=== PATIENT | female | born 1940 | race Caucasian/White ===

== ENCOUNTER 2016-10-31 06:28 | Inpatient (IN) ==
[2016-10-31] MEDS ORDERED: 0.9 % Sodium Chloride 1,000 ML IVC SCH (06:45)
[2016-10-31] MEDS ORDERED: Verapamil 5 MG/2 ML VIAL ONE (06:58)
[2016-10-31] MEDS ORDERED: Heparin 1,000 UNITS/500 mL NS 500 ML ONE (06:58)
[2016-10-31] MEDS ORDERED: Nitroglycerin 1,000 MCG/10 ML VIAL IV ONE (06:58)
[2016-10-31] MEDS ORDERED: 0.9 % Sodium Chloride 1,000 ML ONE (06:58)
[2016-10-31] MEDS ORDERED: *HR* Heparin 10,000 UNIT/10 ML VIAL ONE (06:58)
[2016-10-31] MEDS ORDERED: *HR* FentaNYL (PF) 100 MCG/2 ML VIAL ONE (07:26)
[2016-10-31] MEDS ORDERED: *HR* Midazolam HCl 2 MG/2 ML VIAL ONE (07:27)
--- NOTE | 2016-10-31 07:32 | History & Physical Report ---
Date of Encounter: 10/31/16 Time of Encounter: 07:30 24 Hour HP Update - Instructions Instructions: If the History and Physical is less than 30 days old and was completed prior to A.M. admission and or procedure and has NOT been updated on calendar day of procedure please complete this update prior to performing procedure. - Update Patient reports changes in Medical Condition: No Changes in examination, assessment, or condition: No Changes in Medication: No Preop tests/diagnostics Reviewed: Yes Surgery Remains Indicated: Yes Consent for Planned Operative Procedure(s) Verified: Yes
--- NOTE | 2016-10-31 07:32 | Pre-Sedation Evaluation ---
Pre-sedation evaluation - Pre-sedation checklist Date of procedure: 10/31/16 Procedure: [facility] Recent Vitals: Last Vital Signs Temp 97.6 F 10/31/16 06:46 Pulse 85 10/31/16 06:46 Resp 18 10/31/16 06:46 BP 132/64 10/31/16 06:46 Pulse Ox 93 10/31/16 06:46 H&P (including ROS) documented in medical record: Yes Previous reaction to sedatives/anesthetics: No Dietary Status: NPO after Midnight Dentition: No loose teeth or bridges ASA Classification *see protocol: CLASS II-Mild systemic disease Plan of Care: Pt appropriate candidate for procedure/moderate/conscious sedation , Risks/benefits of procedure/sedation discussed w/ patient/family
--- NOTE | 2016-10-31 08:42 | Invasive Diagnostic Lab Proc ---
Name: Dolores Lundy Date of Study: 10/31/2016 Date: 1940 Ht: 62.0in Medical Record#: [id number] Age: 76 Wt: 133.00lb Gender: Female BSA: 1.61 Order #: [id number] BMI: 24.33 Physicians Procedure Physician: Damon Clay MD, FACC Referring MD: Referring MD: Antonieta Daly, DANNY Staff [facility] 07:05 AM Amanda Isidro RN Pre-Op Nurse 07:05 AM Erika Nagy RN Monitor 07:36 AM Alicja Ureña RN Glue Bone Crusher 07:36 AM Eli Baig RT (R) Scrub 07:37 AM Indications Indication Abnormal Test - Stress Procedures Performed Procedure L HRT ARTERY/VENTRICLE ANGIO Pre-Procedure Checklist Informed consent is complete signed and on chart. H&P is on chart. ID band is on and ID verified with patient. Patient NPO for procedure The procedure was described for the patient and questions were answered. Blood Pressure: 132/64 ECG is on chart. Rhythm: NSR Plan of Care Patient will tolerate the procedure without complications. Adequate level of comfort will be maintained. Hemodynamics will remain stable Patient will recover from procedure without complications. Respiratory function will be maintained. Cardiac rhythm will remain stable. Patient temperature will be maintained. Patient and/or family have verbalized understanding of the procedure. Patient Education Intravenous Access Time IV Size Location DC'd Fluid/Drip Rate Units RN 07:04 AM Started with 20g 1 1/4" Lt Antecubital 0.9NaCl 50 ml/hr Amanda Isidro RN Allergies No Known Allergies Vital Signs Time BP (mmHg) HR (bpm) O2 Sat. RR (bpm) LOC 07:04 AM 132 / 64 85 93 % 18 5 = Fully awake and oriented or at pre-proc level 07:38 AM / % 5 = Fully awake and oriented or at pre-proc level 07:38 AM / % 4 = Oriented but drowsy 07:33 AM 171 / 80 89 96 % 19 07:35 AM 180 / 77 91 96 % 22 07:38 AM 147 / 68 87 89 % 13 07:41 AM 149 / 75 83 90 % 15 07:44 AM 156 / 76 82 92 % 14 07:47 AM 154 / 73 81 92 % 20 07:50 AM 149 / 68 83 92 % 18 07:53 AM 135 / 67 82 90 % 18 07:57 AM 152 / 75 83 91 % 15 07:59 AM 148 / 73 84 91 % 20 08:02 AM 156 / 69 % 08:10 AM 140 / 70 78 94 % 18 5 = Fully awake and oriented or at pre-proc level 08:25 AM 141 / 61 79 94 % 16 5 = Fully awake and oriented or at pre-proc level Procedural Medications Time Medication Dose Units Method Given By 07:38 AM Oxygen 2 L/min nasal cannula Alicja Ureña RN 07:38 AM Versed 2 mg Intravenous Alicja Ureña RN 07:38 AM Fentanyl 25 mcg Intravenous Alicja Ureña RN 07:40 AM Lidocaine 2% 0.5 ml Subcutaneous Damon Clay MD, FAC 07:42 AM Lidocaine 2% 15 ml Subcutaneous Damon Clay MD, FAC 07:51 AM Nitroglycerin 100 mcg Intracoronary Damon Clay MD ASA Classification: CLASS II- Mild systemic disease (i.e. well-controlled diabetes, hypertension, asthma, cigarette smoking) Deni Score Preprocedure Postprocedure Activity 2- Moves 4 extremities sustained head lift Activity 2- Moves 4 extremities sustained head lift Circulation 2- SBP +/= 20 points of pre-anesthetic level Circulation 2- SBP +/= 20 points of pre-anesthetic level Consciousness 2- Awake and alert oriented x 3 Consciousness 2- Awake and alert oriented x 3 O2 Saturation 2- Able to maintain O2 satruation of 92% on room air O2 Saturation 2- Able to maintain O2 satruation of 92% on room air Respiratory 2- Able to deep breathe and cough well Respiratory 2- Able to deep breathe and cough well Total Score 10 Total Score 10 Contrast Agent: Isovue Diagnostic Contrast: 54 ml Total Contrast: 54 ml Fluoro Dose: 118 mGy Procedure Log Time Note Enter By 07:25 AM Pt arrived to rags laborer 1 at 07:25 [email or web address] 07:26 AM Physician arrived 07:26 [email or web address] 07:26 AM [email or web address] 07[facility]27 AM Sign in performed according to hospital policy. [email or web address] 07:27 AM Procedure [facility] 07[facility]27 [email or web address] 07[facility] AM CathStat 07:31 AM Vitals capture started with the following parameters, Patient=Adult, Interval=3 min, Initial Jsexvsbq=702 mmHg, Deflation Rate=5 mmHg, Cuff placed on Right Arm 07:33 AM HR=89 bpm, BASD=336/80 mmhg, SpO2=96.0 %, Resp=19 B/min, Comment=NSR 07:34 AM Recorded ECG: HR=91 Condition=Condition 1 07:35 AM HR=91 bpm, SZNQ=847/77 mmhg, SpO2=96.0 %, Resp=22 B/min, Comment=NSR 07:35 AM ASA Class CLASS II- Mild systemic disease (i.e. well-controlled diabetes, hypertension, asthma, cigarette smoking) [email or web address] 07:36 AM Erika Nagy RN Position: Monitor Time in: 07:36 [email or web address] 07:37 AM Alicja Ureña RN Position: Glue Bone Crusher Time in: 07:36 [email or web address] 07:37 AM Eli Baig RT (R) Position: Scrub Time in: 07:37 [email or web address] 07:37 AM Patient charges- Angio tray pack, Navilyst 3mm J, Pulse Oximetry and ACIST tubing and transducer [email or web address] 07:37 AM IV Supplies used: J loop Angio Cath. [email or web address] 07:37 AM Case Delayed No [email or web address] 07:37 AM Hair removed from procedure site in holding area using clippers. Left wrist prepped with Chloraprep by Eli Baig RT (R), safety strap applied then patient was draped. Skin intact. [email or web address] 07:37 AM Hair removed from procedure site in holding area using clippers. Bilateral groin prepped with Chloraprep by Eli Baig RT (R), safety strap applied then patient was draped. Skin intact. [email or web address] 07:38 AM Time: 07:38 Oxygen on at 2 L/min per nasal cannula by Alicja Ureña RN [email or web address] 07:38 AM Time: 07:38 Versed 2 mg Intravenous Given by Alicja Ureña RN [email or web address] 07:38 AM Time: 07:38 Fentanyl 25 mcg Intravenous Given by Alicja Ureña RN [email or web address] 07:38 AM HR=87 bpm, XVIA=707/68 mmhg, SpO2=89.0 %, Resp=13 B/min, Comment=NSR 07:38 AM Time: 07:38 Patient comfortable and pain free: Yes [email or web address] 07:38 AM Time: 07:38LOC: 5 = Fully awake and oriented or at pre-proc level [email or web address] 07:38 AM Clinical Presentation: Stable angina [email or web address] 07:40 AM Time out performed according to hospital policy [email or web address] 07:40 AM Time: 07:40 0.5 ml Lidocaine 2% to left radial Subcutaneous Given by Damon Clay MD, [facility] [email or web address] 07:41 AM HR=83 bpm, CJZT=477/75 mmhg, SpO2=90.0 %, Resp=15 B/min, Comment=NSR 07:42 AM Unsuccessful access attempt # 1 into the left Radial artery. Manual pressure applied to achieve hemostasis.. [email or web address] 07:44 AM Time: 07:42 15 ml Lidocaine 2% to right groin Subcutaneous [facility] by [facility], [email or web address] 07[facility] AM Access obtained by percutaneous puncture. 6Fr 10cm Terumo Glidesheath sheath placed in right Femoral artery. [id number] [email or web address] 07:44 AM HR=82 bpm, NXFA=454/76 mmhg, SpO2=92.0 %, Resp=14 B/min, Comment=NSR 07:45 AM Pressure channel 2 zeroed. 07:47 AM 5Fr FR 4 catheter inserted over the wire [facility] [email or web address] 07:47 AM 0.035 145cm Navilyst 3mmJ wire [id number] [email or web address] 07:47 AM HR=81 bpm, PXYQ=873/73 mmhg, SpO2=92.0 %, Resp=20 B/min, Comment=NSR 07:48 AM Recorded Pressure: Ao, HR=78, Condition=Condition 1 (Aorta) Ao 122/74/97 07:48 AM Lesion found in Proximal RCA. Pre Stenosis: 40 [email or web address] 07:48 AM [email or web address] 07[facility]49 AM 5Fr FL 4 catheter inserted over the wire [facility] [email or web address] 07:49 AM LCA angiography performed in multiple views. [email or web address] 07:49 AM Recorded Pressure: Ao, HR=82, Condition=Condition 1 (Aorta) Ao 107/44/72 07:50 AM HR=83 bpm, ZZIT=709/68 mmhg, SpO2=92.0 %, Resp=18 B/min, Comment=NSR 07:51 AM Time: 07:51 Nitroglycerin 100 mcg Intracoronary Given by Damon Clay MD [email or web address] 07:51 AM Catheter removed [email or web address] 07:52 AM 5Fr Pigtail catheter inserted over the wire [facility] [email or web address] 07:52 AM Lesion found in LMCA. Pre Stenosis: 80 [email or web address] 07:53 AM Lesion found in Proximal LAD. Pre Stenosis: 99 [email or web address] 07:53 AM Catheter removed [email or web address] 07:53 AM Recorded Pressure: LV, HR=84, Condition=Condition 1 (Left Ventricle) LV 146/-6/9 07:53 AM HR=82 bpm, RHJD=911/67 mmhg, SpO2=90.0 %, Resp=18 B/min 07:53 AM Time: 07:38 Patient comfortable and pain free: Yes [email or web address] 07:53 AM Time: 07:38LOC: 4 = Oriented but drowsy [email or web address] 07:54 AM Recorded Pressure: LV, Ao, HR=84, Condition=Condition 1 (Left Ventricle) LV 121/-1/33, (Aorta) Ao 125/44/74 07:54 AM Bolus angiogram of right Femoral complete: 4 ml/sec for a total of 7 mls [email or web address] 07:56 AM Coronary Dominance: right [email or web address] 07:57 AM HR=83 bpm, DPEN=827/75 mmhg, SpO2=91.0 %, Resp=15 B/min 07:57 AM Right Coronary, Right Posterior Descending Arteries with Right Posterolateral and Acute Marginal branches with 40 % stenosis. [email or web address] 07:57 AM Left Main Coronary Artery with 80% stenosis [email or web address] 07:57 AM Proximal Left Anterior Descending Coronary Artery with 99% stenosis. [email or web address] 07:59 AM Procedure completed at 07:59 [email or web address] 07:59 AM HR=84 bpm, MXOJ=254/73 mmhg, SpO2=91 %, Resp=20 B/min 07:59 AM Sign out completed: Radiation Dose 117.64 mGy Fluoro Time: 2.5 Isovue 370 - 200ml contrast 54 ml given by Damon Clay MD, FACC. Complications: NoneCardiac Rehab Consult needed: NoConfirmed administered medications: Yes [email or web address] 07:59 AM Isovue 370 - 200ml,1 Bottle(s) used. [email or web address] 08:00 AM Arterial sheath pulled, Mynx closure device used and was Successful [id number] S/N. [email or web address] 08:00 AM Post ECG NSR [email or web address] 08:00 AM Post Blood Pressure 148/73 [email or web address] 08:00 AM 08:00 Post Pulses Bilateral DP & PT 2+ [email or web address] 08:00 AM 08:00 Post Pulses Lt Radial 2+ [email or web address] 08:01 AM Information taught Cardiac Cath and Mynx [email or web address] 08:01 AM Education needs Procedure, Plan of Care, and Safe & Effective Use of Medications [email or web address] 08:01 AM Learning barriers :None [email or web address] 08:01 AM Education Methods Verbal [email or web address] 08:01 AM Education evaluation Able to repeat information [email or web address] 08:01 AM Site status No bleeding/hematoma - Rt Groin as reported by Eli Baig RT (R) at 08:01 [email or web address] 08:01 AM Opsite applied [email or web address] 08:02 AM WTCC=117/69 mmhg 08:03 AM Report given to Ruth Ann ESCOBEDO Pt taken to Holding room Room #1. 08:02 [email or web address] 08:03 AM Plavix, Effient or Brilinta given No [email or web address] 08:03 AM Delay to floor Bed availability [email or web address] 08:03 AM Patient out of room: 08:03 [email or web address] 08:03 AM Family placed in consult room. [email or web address] 08:03 AM Complications: None [email or web address] 08:03 AM Fluoro Time: 2.5 [email or web address] 08:03 AM Isovue 370 - 200ml contrast 54 ml given by Damon Clay MD, FACC. [email or web address] 08:04 AM Radiation Dose 117.64 mGy [email or web address] 08:04 AM Vitals capture stopped. 08:[address] Soler called back and updated on patient consult [email or web address] 08:08 AM Lesion found in Ramus. Pre Stenosis: 95 [email or web address] 08:08 AM Ramus with 95% stenosis. [email or web address] 08:11 AM Patient arrive to Holding area 1 mprater 08:20 AM report given to Suze gonzalez 2N mprater 08:26 AM Patient transferred to 2N mprater Complications Complication None Hemodynamics Pressures Site Systolic/A Wave Diastolic/V Wave Mean AO 122 74 97 AO 107 44 72 LV 146 -6 9 LV 121 -1 33 AO 125 44 74 Post Procedure Information Blood Pressure: 148/73 mmHg Rhythm: NSR Post procedural instructions were given Surgery consult for CABG Closure Device Time Device Success/Fail 10/31/2016 8:04:00 AM MynxGrip Successful Site Checks Time Location Status Staff Sheath In? Note 08:01 AM Rt Groin No bleeding/hematoma Eli Baig RT (R) 08:10 AM Rt Groin No bleeding/ No Hematoma Kaur Jj RN 08:25 AM Rt Groin No bleeding/ No Hematoma Kaur Jj RN Pulses Time Site Pre-Procedure Post-Procedure Note 10/31/2016 7:04:00 AM Bilateral DP & PT 2+ 10/31/2016 7:04:00 AM Bilateral radial 2+ 10/31/2016 7:34:00 AM Lt Radial Normal plethysmography's Test 8:00:00 AM Bilateral DP & PT 2+ 8:00:00 AM Lt Radial 2+ 10/31/2016 8:25:00 AM Bilateral DP & PT 2+ Updated by Kaur Jj RN on 10/31/2016 8:36:22 AM Kaur Jj RN electronically signed on 10/31/2016 8:38:10 AM with status of Final
[2016-10-31] MEDS ORDERED: *HR* Heparin 10,000 UNIT/10 ML VIAL IV ONE (08:50)
[2016-10-31] MEDS ORDERED: Sodium Bicarbonate 50 MEQ/50 ML VIAL IVC ONE (08:50)
[2016-10-31] MEDS ORDERED: Albumin Human 25% 25 GM/100 ML IV.SOLN IV ONE (08:50)
[2016-10-31] MEDS ORDERED: Lidocaine 2% Syringe 100 MG/5 ML IV ONE (08:50)
[2016-10-31] MEDS ORDERED: *HR* Magnesium Sulfate 2 GM/50 ML PIGGYBACK IVPB ONE (08:50)
[2016-10-31] MEDS ORDERED: Mannitol 25% vial 12.5 GM/50 ML VIAL IVP ONE (08:50)
[2016-10-31] MEDS ORDERED: *HR* Phenylephrine 10 MG/ML VIAL IVC ONE (08:50)
[2016-10-31] MEDS ORDERED: Nitroglycerin 0.4 MG TAB.SUBL SL PRN (09:01)
[2016-10-31] MEDS ORDERED: *HR* Morphine 2 MG/ML SYRINGE IVP PRN (09:01)
[2016-10-31] MEDS ORDERED: *HR* Heparin 5,000 UNIT/ML VIAL IVP PRN ×2 (09:03)
[2016-10-31] MEDS ORDERED: *HR* Heparin 5,000 UNIT/ML VIAL IVP ONE (09:03)
--- NOTE | 2016-10-31 09:20 | Invasive Diagnostic Lab ---
Name: Dolores Lundy Date of Study: 10/31/2016 Date: 1940 Ht: 157.5 cm /62.0 in Medical Record#: [id number] Age: 76 Wt: 60.3 kg / 133.00 lb Account/Order#: [id number] Gender: Female BSA: 1.61 Order #: [id number] Fluoro Dose: 118 mGy BMI: 24.33 Procedure Physician: Damon Clay MD, FACC Referring MD: Referring MD: Antonieta Daly CNP Procedures Performed: LEFT HEART CATH Right iliofemoral angiography Indications: Abnormal Test - Stress, Angina Impressions: There is critical three vessel coronary artery disease involving ostia of LAD, ramus, LCx with diffuse severe left main disease The left ventricle has normal contractility EF 65% Recommendations: Optimal medical therapy of patient's disease. Aggressive risk factor modification. Suggest patient have Urgent coronary artery bypass surgery. History/Risk Factors: ABNORMAL STRESS TEST CAD Hypertension Dyslipidemia Family History of CAD Procedure Access obtained in the right Femoral artery by percutaneous puncture Complications: None Contrast: Isovue 54ml Closure Device: MynxGrip Hemodynamics: Pressures Site Systolic/ A Wave Diastolic/ V Wave End Diastolic/ Mean HR AO 122 74 97 78 AO 107 44 72 82 LV 146 -6 9 84 LV 121 -1 33 99 AO 125 44 74 70 LV Ventriculography Ejection Method: LV Gram Ejection Fraction: 65% Wall Motion: ORTIZ Anterobasal Normal Anterolateral Normal Apical: Normal Inferoapical Normal Inferobasal Normal Coronary Dominance: right Lesion Findings/Interventions * Left Main Coronary Artery There is diffuse 60-80% stenosis in the LMCA. * Left Anterior Descending There is a 99% stenosis in the Proximal LAD. * Circumflex There is an ostial 95% stenosis in the circumflex * Ramus There is a 99% stenosis in the ostial Ramus. * Right Coronary Artery There is a 40% stenosis in the Proximal RCA. Right iliofemoral angiography shows appropriate sheath placement for mynx closure and no significant stenosis in the distal EI/FINANCE CLERK/proximal SFA Updated by RT Emily(R) on 10/31/2016 8:10:26 AM Damon Clay MD, FACC electronically signed on 10/31/2016 9:13:55 AM with status of Final
[2016-10-31 09:31] LABS: Hematocrit 40.1 % (35.3-44.9); Hemoglobin 13.3 g/dL (11.5-15.4); Mean Corpuscular HGB Conc 33.2 g/dL (31.6-35.5); Mean Corpuscular Volume 93.5 fL (83.0-100.0); Mean Platelet Volume 10.1 fL (9.4-12.4); Platelet Count 158 K/mcL (140-400); Prothrombin Time 11.2 Seconds (9.4-12.1); Red Blood Count 4.29 M/mcL (3.82-4.97); Red Cell Distribution Width 12.6 % (11.5-14.5)
[2016-10-31 09:33] LABS: Activated Partial Thrombo Time 29.3 Seconds (26.0-36.0)
--- NOTE | 2016-10-31 09:47 | Event Note ---
Date of Encounter: 10/31/16 Time of Encounter: 09:45 - Cardiology Event Note Critical multivessel CAD involving ostial of LAD/LCx/ramus with diffuse severe disease in the left main and normal EF. Recommend urgent CABG. Heparin drip will be started and CT surgery consulted.
[2016-10-31] MEDS: Heparin 25,000 UNIT/500 ML D5W 25,000 UNIT/500 ML MLS IVC SCH (10:00)
--- NOTE | 2016-10-31 10:37 | Cardiothoracic Consult Note ---
Date of Encounter: 10/31/16 Time of Encounter: 10:33 Assessment and Plan (1) Coronary artery disease Current Visit: Yes Status: Acute The assessment and plan as outlined above was discussed with the patient and/or family members who expressed understanding and agreement. All questions were answered. The patient is a candidate for coronary artery bypass grafting. She is pain- free on a heparin drip. I will check a carotid duplex. The patient has a history of dizziness and headaches. The patient also states that she has a cold and wishes to wait until Monday if possible. Operative consent was obtained. Risks of surgery include , infection, stroke, bleeding, myocardial infarction, clots around the heart, renal or respiratory failure, acute or chronic graft closure, phrenic nerve injury and sternal dehiscence. The procedure, its risks, benefits and alternatives were explained and she does wish to proceed. She and her family at this point have no questions. We will tentatively schedule her for Monday. Qualifiers: Coronary Disease-Associated Artery/Lesion type: [place] artery [place] vs. transplanted heart: [place] heart Associated angina: with stable angina Qualified Code(s): I25.118 - Atherosclerotic heart disease of [place] coronary artery with other forms of angina pectoris (2) Angina pectoris Current Visit: Yes Status: Acute The assessment and plan as outlined above was discussed with the patient and/or family members who expressed understanding and agreement. All questions were answered. - History of Present Illness Consult date: 10/31/16 History of present illness: Ms. Lundy is a 76 year old female History of present illness. The patient is a 76-year-old female who has a several month history of chest pain. This occurs at rest and with exertion. No known history of myocardial infarction. Presently she is pain free. Echocardiogram revealed good ventricular function with no significant valvular dysfunction. Cardiac catheterization revealed good ventricular function. Her right coronary artery has less than a 40% blocked. She has an 80% left main lesion and a block in her proximal LAD and intermediate branches. These looked to be graftable vessels. Past medical history is positive for hypertension and hypercholesterolemia, both of which are treated. No history of diabetes. She does take a nerve pill. Medications at home include calcium, vitamin D and aspirin. Surgery she had removal of both ovaries. Social history. She lives in [place] with her . Does not smoke and does not drink. Family history is positive for coronary artery disease. Review of systems is notable for dizziness and headaches. No history of stroke or TIA. No history of saphenous vein varicosities or strippings. The patient does take a nerve pill for anxiety. Past Med Surg Social Fam HX - Past Medical History Medical history: coronary artery disease, hyperlipidemia, hypertension Psychiatric history: anxiety - Social History Smoking Status: Never smoker Smokeless Tobacco Status: No Alcohol use: none Drug use: none Medications and Allergies Amlodipine Besylate 2.5 mg PO DAILY 10/31/16 [History] Atenolol [Tenormin] 25 mg PO DAILY 10/31/16 [History] Calcium Carbonate [Calcium] 500 mg PO DAILY 10/31/16 [History] Cholecalciferol (Vitamin D3) [Vitamin D] 2,000 unit PO DAILY 10/31/16 [History] Pravastatin Sodium [Pravachol] 40 mg PO DAILY 10/31/16 [History] clonazePAM [Clonazepam] 0.25 mg PO DAILY 10/31/16 [History] Allergies No Known Allergies Allergy (Unverified 10/10/16 08:48) All Systems Review: A 10-system review of systems was performed and is negative for pertinent findings except as documented above in the HPI. Physical Examination Vital Signs, Last 4 Hours Temp Pulse Resp BP Pulse Ox 10/31/16 08:34 97.6 F 89 16 134/72 95 10/31/16 08:30 97.6 F 89 16 134/72 95 10/31/16 06:46 97.6 F 85 18 132/64 93 The patient has small bilateral cataracts. She is edentulous. Neck is supple. Trachea in the midline. No thyromegaly or carotid bruits. Lungs are clear to percussion and auscultation. Heart is in a normal sinus rhythm. Abdomen is benign. She is status post removal of her ovaries. No tenderness, rebound or guarding. Extremities without edema. 1+ pulses. No saphenous vein varicosities or strippings. Cranial nerves, motor and sensory intact. Results 10/31/16 09:17 Lab Results, Last 24 hours 10/31/16 10/31/16 09:17 09:17 WBC 5.5 Hgb 13.3 Hct 40.1 Plt Count 158 INR 1.0 APTT 29.3 Consult Discharge Plan - Plan Referrals: Antonieta Daly CNP [Primary Care Provider] -
[2016-10-31 11:26] LABS: Hemoglobin A1C 5.6 %
[2016-10-31 11:28] LABS: INR 1.1; Prothrombin Time 11.4 Seconds (9.4-12.1)
[2016-10-31 11:31] LABS: Activated Partial Thrombo Time 34.5 Seconds (26.0-36.0)
[2016-10-31 11:33] LABS: BUN/Creatinine Ratio 18 (6-26); Blood Urea Nitrogen 14 mg/dL (7-20); Calcium 9.4 mg/dL (8.6-10.8); Carbon Dioxide 28 mEq/L (19-29); Chloride 106 mEq/L (98-109); Chol/HDL Ratio 3.1 (0-4.9); Cholesterol 160 mg/dL (< 200); Glucose 95 mg/dL (70-99); HDL Cholesterol 51 mg/dL (40-59); LDL Cholesterol,Calculated 94 mg/dL (0-99); Osmolality,Calculated 290 (280-300); Sodium 140 mEq/L (136-145); Triglycerides 75 mg/dL (< 150); eGFR For African Americans > 60 (> 60); eGFR For Non-African Americans > 60 (> 60)
[2016-10-31 13:56] LABS: Bilirubin,Urine Negative (Negative); Blood,Urine Negative (Negative); Clarity,Urine Clear (Clear); Color,Urine Yellow (Yellow); Glucose,Urine (UA) Normal (Normal); Ketones,Urine Negative (Negative); Leukocyte Esterase,Urine Negative (Negative); Nitrite,Urine Negative (Negative); Protein,Urine Negative (Neg-Trace); Specific Gravity,Urine 1.026 (1.010-1.025); Urobilinogen,Urine Normal (Normal)
--- NOTE | 2016-10-31 14:29 | Anesthesia Evaluation PreOp ---
Date of Encounter: 11/02/16 Time of Encounter: 07:33 - Past History Planned Operation: CABG Cardiac History: Angina, HTN, Hyperlipidemia Pulmonary History: Denies Any Significant HX COLLIERY CLERK History: Denies Any Significant HX Other Medical History: Denies Any Significant HX Anesthesia History: No Prior Anesthetic Complications : No Alcohol Use: none Drug use: none Medications and Allergies Amlodipine Besylate 2.5 mg PO DAILY 10/31/16 [History] Aspirin [Lo-Dose Aspirin EC] 81 mg PO DAILY 10/31/16 [History] Atenolol [Tenormin] 12.5 mg PO HS 10/31/16 [History] Calcium Carbonate [Calcium] 500 mg PO DAILY 10/31/16 [History] Cholecalciferol (Vitamin D3) [Vitamin D] 2,000 unit PO DAILY 10/31/16 [History] Pravastatin Sodium [Pravachol] 40 mg PO DAILY 10/31/16 [History] Allergies No Known Allergies Allergy (Verified 10/31/16 13:36) - Meds/Allergy Pre-op Review Medications Reviewed: Yes Allergies Reviewed: Yes Beta Blockers on Current Med List: Yes Anesthesia Results - Labs 11/01/16 03:43 11/01/16 03:43 - Imaging Additional studies: Cath shows 3 vessel disease with EF 65%, no valvular disease. Anesthesia Exam Selected Entries 11/02/16 04:51 Temperature 98.1 F Respiratory Rate 18 Blood Pressure 150/73 O2 Sat by Pulse Oximetry 94 Weight: 61kg NPO (# of Hours): 8 Pain Scale: 0 Pain Scale Used: Numeric (1 - 10) - HEENT Pupil (Motor): EOMI Mallampati: I Teeth: Edentulous Oral Opening: Greater than 3 - COLLIERY CLERK LOC: Oriented COLLIERY CLERK Motor: Normal RUE, Normal LUE, Normal RLE, Normal LLE, Normal Face COLLIERY CLERK Sensory: Normal: RUE, LUE, RLE, LLE, Face - Cardiac Rhythm: Regular Murmur: None - Pulmonary Breath Sounds: bilateral Clear Respiratory Effort: Symmetrical Anesthesia Assess/Plan ASA Score: 4 Modified Lorenza Scale for Level of Consciousness: Cooperative, oriented, and tranquil Anesthetic Plan: General Monitoring Plan: Standard Monitors, A-Line, PAC, [place] Recovery Plan: ICU (Discussed risks of GA, lines, [place], and blood products. Questions answered and agrees to proceed)
--- NOTE | 2016-10-31 16:15 | Electrocardiograph Report ---
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
[2016-10-31 16:41] LABS: Activated Partial Thrombo Time 131.6 Seconds (26.0-36.0)
[2016-10-31 16:55] LABS: Heparin anti-factor XA UFH 0.67 IU/mL (0.30-0.70)
[2016-10-31] MEDS: Acetaminophen 325 MG TABLET PO PRN (20:12)
[2016-10-31] MEDS ORDERED: Chlorhexidine Rinse 15 ML MOUTHWASH MM SCH (21:00)
[2016-11-01 03:58] LABS: Basophils % 0.7 %; Eosinophils % 4.9 %; Hematocrit 37.7 % (35.3-44.9); Hemoglobin 12.5 g/dL (11.5-15.4); Immature Granulocytes % 0.2 % (0-4); Lymphocytes % 35.2 %; Mean Corpuscular HGB Conc 33.2 g/dL (31.6-35.5); Mean Corpuscular Hemoglobin 31.3 pg (28.0-33.3); Mean Corpuscular Volume 94.5 fL (83.0-100.0); Mean Platelet Volume 10.1 fL (9.4-12.4); Platelet Count 153 K/mcL (140-400); Red Blood Count 3.99 M/mcL (3.82-4.97); Red Cell Distribution Width 12.8 % (11.5-14.5)
[2016-11-01 03:59] LABS: Eosinophils # 0.3 K/mcL (0.0-0.6); Monocytes # 0.6 K/mcL (0.0-1.3); Neutrophils # 2.8 K/mcL (1.6-8.9)
[2016-11-01 04:08] LABS: BUN/Creatinine Ratio 21 (6-26); Blood Urea Nitrogen 16 mg/dL (7-20); Carbon Dioxide 25 mEq/L (19-29); Chloride 109 mEq/L (98-109); Glucose 99 mg/dL (70-99); Osmolality,Calculated 293 (280-300); Potassium 3.8 mEq/L (3.5-4.5); Sodium 141 mEq/L (136-145); eGFR For African Americans > 60 (> 60); eGFR For Non-African Americans > 60 (> 60)
[2016-11-01] MEDS: Cholecalciferol (D-3) 1,000 UNIT TABLET PO SCH (07:41)
[2016-11-01] MEDS ORDERED: amLODIPine 5 MG TABLET PO SCH (09:00)
[2016-11-01] MEDS ORDERED: Aspirin 81 MG TAB.CHEW PO SCH ×2 (09:00→21:00)
[2016-11-01] MEDS ORDERED: clonazePAM 0.5 MG TABLET PO SCH (09:00)
--- NOTE | 2016-11-01 10:36 | Cardiothoracic Progress Note ---
Date of Encounter: 11/01/16 Time of Encounter: 10:57 - Assessment and plan (1) Coronary artery disease Current Visit: Yes Status: Acute The patient is a 76-year-old hypertensive lady with hypercholesterolemia and a 2 year history of exertional, nonradiating substernal chest pain. She recently underwent a nuclear stress test which revealed an LVEF 73% with anterior, anteroseptal, and apical ischemia. Subsequent cardiac catheterization revealed severe 3 vessel CAD, including an 80% left main lesion, 99% ostial/proximal LAD lesion, an 80% proximal ramus lesion, and an 80% proximal LCx lesion. She has been recommended for CABG. I concur with this recommendation. The STS risk calculator reveals an operative mortality risk 1.6%, permanent stroke risk 1%, deep sternal wound infection risk 0.15%, renal failure risk 1.2%, and reoperation risk 4.7%. The CABG will be performed in the morning. The assessment and plan as outlined above was discussed with the patient and/or family members who expressed understanding and agreement. All questions were answered. Qualifiers: Coronary Disease-Associated Artery/Lesion type: [place] artery [place] vs. transplanted heart: [place] heart Associated angina: with stable angina Qualified Code(s): I25.118 - Atherosclerotic heart disease of [place] coronary artery with other forms of angina pectoris - Subjective Interval history: The patient is sitting at the bedside. She has no complaints. Vital Signs, Last 4 Hours Temp Pulse Resp BP Pulse Ox 11/01/16 07:40 59 11/01/16 07:22 98.6 F 82 15 120/65 96 Oxgyen Flow Rate Oxygen Flow Rate (LPM) 0 Clinical Data, last 8 Hours Output, Urine Amount 0 Output, Urine Amount 250 Output, Urine Amount 400 Weight 10/30/16 10/31/16 11/01/16 23:59 23:59 23:59 Weight 60.328 kg 60.7 kg - Physical Examination General: Conversant, No Apparent Distress Neck: No JVD, Normal carotid pulses Cardiac: Reg Rate and Rhythm, Normal S1 and S2, No Murmur Lungs: Normal Breath Sounds, No Wheeze, Rales, Rhonchi Neuro: Alert and responsive, No focal deficits noted Vascular: Normal capillary refill Musculoskeletal: No Chest Wall Tenderness Extremities: No Clubbing, No Cyanosis, No Edema, Normal Pulses - Labs 11/01/16 03:43 11/01/16 03:43 Lab Results, Last 24 hours 10/31/16 10/31/16 10/31/16 11:08 11:08 15:58 WBC Hgb Hct Plt Count INR 1.1 APTT 34.5 131.6 H* D Sodium 140 Potassium 4.0 Chloride 106 Carbon Dioxide 28 BUN 14 Creatinine 0.79 Glucose 95 Calcium 9.4 10/31/16 11/01/16 11/01/16 22:01 03:43 03:43 WBC 5.7 Hgb 12.5 Hct 37.7 Plt Count 153 INR APTT 56.9 H D Sodium 141 Potassium 3.8 Chloride 109 Carbon Dioxide 25 BUN 16 Creatinine 0.77 Glucose 99 Calcium 9.0 11/01/16 05:37 WBC Hgb Hct Plt Count INR APTT 54.4 H Sodium Potassium Chloride Carbon Dioxide BUN Creatinine Glucose Calcium Consult Discharge Plan - Plan Referrals: Antonieta Daly CNP [Primary Care Provider] - ()
--- NOTE | 2016-11-01 12:05 | Cardiology Progress Note ---
Date of Encounter: 11/01/16 Time of Encounter: 12:02 Assessment and Plan (1) Coronary artery disease Current Visit: Yes Status: Acute Outpt [facility] yesterday for abnormal stress test revealed severe 3 vessel CAD, including an 80% left main lesion, 99% ostial/proximal LAD lesion, an 80% proximal ramus lesion, and an 80% proximal LCx lesion. CT surgery consulted, plan for CABG tomorrow. Right radial access site healing well. No bleeding, hematoma or ecchymosis noted. Will check echo. Continue heparin gtt, ASA, Statin, BB. Reports episode of chest pain and headache last night relieved with tylenol. Currently chest pain free. Will coordinate outpt follow-up in 4-6 weeks with cardiology. Qualifiers: Coronary Disease-Associated Artery/Lesion type: [place] artery [place] vs. transplanted heart: [place] heart Associated angina: with stable angina Qualified Code(s): I25.118 - Atherosclerotic heart disease of [place] coronary artery with other forms of angina pectoris Discussion w patient/family: The assessment and plan as outlined above was discussed with the patient and/or family members who expressed understanding and agreement. All questions were answered. Thank you for involving us in the care of your patient. Please call with any questions. I will discuss all the above with Dr. Serrano and make changes as necessary. Subjective Principal diagnosis: CAD Interval history: Outpt C yesterday revealed severe [address] surgery consulted, plan for CABG tomorrow. Pt reports episode of chest pain and headache last night that improved with Tylenol. Currently chest pain free. Objective Vital Signs, Last 4 Hours Temp Pulse Resp BP Pulse Ox 11/01/16 11:43 72 11/01/16 11:34 97.7 F 75 18 131/65 97 Vital Signs Temp Pulse Resp BP Pulse Ox 11/01/16 11:43 72 11/01/16 11:34 97.7 F 75 18 131/65 97 11/01/16 07:40 59 11/01/16 07:22 98.6 F 82 15 120/65 96 11/01/16 04:17 98.0 F 70 19 140/59 93 11/01/16 04:02 95 10/31/16 23:10 97.9 F 65 21 116/57 94 10/31/16 19:51 98.1 F 87 19 144/65 96 10/31/16 17:04 98.0 F 85 16 118/74 93 10/31/16 13:15 98.0 F 77 16 113/53 93 10/31/16 12:30 72 Intake and Output 10/31/16 11/01/16 11/01/16 23:59 07:59 15:59 Intake Total 140 / 140 500 / 500 240 / 240 Output Total 101 / 101 650 / 650 0 / 0 Balance 39 / 39 -150 / -150 240 / 240 Intake: IV Fluids 90 / 90 0 / 0 Heparin 25,000 UNIT/500 90 / 90 0 / 0 ML D5W 25,000 unit In 500 ml @ 12 UNIT/KG/HR 14. 479 mls/hr IVC .Q24H [facility] Rx#:[id number] Oral 50 / 50 500 / 500 240 / 240 Output: Urine 101 / 101 650 / 650 0 / 0 Other: Meal Breakfast Percent of Meal Consumed 100% # Voids 1 # Bowel Movements 1 Weight 60.7 kg Patient Weight 11/01/16 23:59 Weight 60.7 kg General: Conversant, No Apparent Distress HEENT: Atraumatic, Normocephaly, Mucus Membranes Moist Neck: No JVD, Normal carotid pulses Cardiac: Reg Rate and Rhythm, Normal S1 and S2, No Murmur Lungs: Normal Breath Sounds, No Wheeze, Rales, Rhonchi Neuro: Alert and responsive, No focal deficits noted Abdomen: Soft, Non-Tender Skin: Other (right radial access site healing well. No bleeding, hematoma or ecchymosis noted.) Musculoskeletal: No Chest Wall Tenderness Extremities: No Clubbing, No Cyanosis, No Edema, Normal Pulses Results 11/01/16 03:43 11/01/16 03:43 Lab Results 10/31/16 10/31/16 11/01/16 15:58 22:01 03:43 WBC 5.7 Hgb 12.5 Hct 37.7 Plt Count 153 APTT 131.6 H* D 56.9 H D Sodium Potassium Chloride Carbon Dioxide BUN Creatinine Glucose Calcium 11/01/16 11/01/16 03:43 05:37 WBC Hgb Hct Plt Count APTT 54.4 H Sodium 141 Potassium 3.8 Chloride 109 Carbon Dioxide 25 BUN 16 Creatinine 0.77 Glucose 99 Calcium 9.0 Short CBC 11/01/16 Range/Units 03:43 WBC 5.7 (4.3-11.1) K/mcL Hgb 12.5 (11.5-15.4) g/dL Hct 37.7 (35.3-44.9) % Plt Count 153 (140-400) K/mcL Neutrophils # 2.8 (1.6-8.9) K/mcL BMP 11/01/16 Range/Units 03:43 Sodium 141 (136-145) mEq/L Potassium 3.8 (3.5-4.5) mEq/L Chloride 109 (98-109) mEq/L Carbon Dioxide 25 (19-29) mEq/L BUN 16 (7-20) mg/dL Creatinine 0.77 (0.57-1.11) mg/dL Glucose 99 (70-99) mg/dL Calcium 9.0 (8.6-10.8) mg/dL Urine 10/31/16 Range/Units 12:30 Urine Color Yellow (Yellow) Urine Clarity Clear (Clear) Urine pH 7.0 (5.0-8.0) pH Units Ur Specific [place] 1.026 H (1.010-1.025) Urine Protein Negative (Neg-Trace) mg/dL Urine Glucose (UA) Normal (Normal) mg/dL Active Medications Acetaminophen (Tylenol) 650 mg PO Q6HR PRN PRN Reason: Mild Pain Stop: 05/02/17 09:02 Last Admin: 10/31/16 20:12 Dose: 650 mg Hydrocodone Bitart/Acetaminophen ([place] 5-325 Mg) 1 tab PO Q4HR PRN PRN Reason: Moderate Pain Stop: 05/02/17 09:02 Amlodipine Besylate (Norvasc) 2.5 mg PO DAILY [facility] Stop: 05/03/17 09:01 Last Admin: 11/01/16 07:41 Dose: 2.5 mg Aspirin (Aspirin) 81 mg PO 0600 ONE Stop: 11/02/16 06:01 Aspirin (Aspirin) 81 mg PO HS [facility] Stop: 05/03/17 21:01 Atenolol (Tenormin) 25 mg PO HS [facility] Stop: 05/02/17 21:01 Last Admin: 10/31/16 20:21 Dose: 25 mg Calcium Carbonate (Tums) 500 mg PO DAILY [facility] Stop: 05/03/17 09:01 Last Admin: 11/01/16 07:41 Dose: 500 mg Chlorhexidine Gluconate (Chlorhexidine Rinse) 15 ml MM BID [facility] Stop: 11/02/16 09:01 Diphenhydramine HCl (Benadryl) 25 mg PO HS PRN PRN Reason: insomnia Stop: 05/02/17 09:02 Guaifenesin (Mucinex) 600 mg PO BID [facility] Stop: 05/02/17 21:01 Last Admin: 11/01/16 07:41 Dose: 600 mg Heparin Sodium (Porcine) (Heparin) 3,600 unit 60 unit/kg (3600 unit) IVP Q6HR PRN PRN Reason: SEE COMMENTS Stop: 11/02/16 05:00 Heparin Sodium (Porcine) (Heparin) 1,800 unit 30 unit/kg (1800 unit) IVP Q6H PRN PRN Reason: SEE COMMENTS Stop: 11/02/16 05:00 Last Admin: 11/01/16 06:10 Dose: 1,800 unit Heparin Sodium/Dextrose (Heparin 25,000 Unit/500 Ml D5w) 25,000 unit in 500 mls @ 14.479 mls/hr IVC .Q24H [facility]; 12 UNIT/KG/HR PRN Reason: Protocol Stop: 11/02/16 05:00 Last Titration: 11/01/16 06:06 Dose: 11.02 unit/kg/hr, 13.3 mls/hr Cefazolin Sodium 2,000 mg/ (Dextrose) 100 mls @ 200 mls/hr IVPB PREOP ONE PRN Reason: Protocol Stop: 11/02/16 06:29 Metoprolol Tartrate (Lopressor) 25 mg PO 0600 ONE Stop: 11/02/16 06:01 Morphine Sulfate (Morphine Sulfate) 2 mg IVP Q2H PRN PRN Reason: Severe Pain Stop: 05/02/17 09:02 Nitroglycerin (Nitroglycerin) 0.4 mg SL Q5MIN PRN PRN Reason: Chest Pain Stop: 05/02/17 09:02 Ondansetron HCl (Zofran) 4 mg IVP Q6HR PRN; Protocol PRN Reason: Nausea And Vomiting Stop: 05/02/17 09:02 Oxycodone/Acetaminophen (Percocet 5/325) 1 each PO Q4HR PRN PRN Reason: Severe Pain Stop: 05/02/17 09:02 Rosuvastatin Calcium (Crestor) 40 mg PO HS [facility] Stop: 05/02/17 21:01 Last Admin: 10/31/16 20:11 Dose: 40 mg Vitamin D (Vitamin D) 2,000 unit PO DAILY [facility] Stop: 05/03/17 09:01 Last Admin: 11/01/16 07:41 Dose: 2,000 unit - EKG Interpretation EKG results cardiology: other (12 hr tele AVG HR 67, SR, no significant pauses or arrhythmias) Consult Discharge Plan - Plan Referrals: Antonieta Daly SEED SORTER [Primary Care Provider] - ()
[2016-11-01] MEDS: Acetaminophen 325 MG TABLET PO PRN (15:36)
--- NOTE | 2016-11-01 17:25 | Carotid Imaging Report ---
Carotid Duplex Patient Name:Dolores Lundy Order Number:[id number] Procedure Date:10/31/2016 Date:1940ge:76 yrs Gender:Female Rt.BP:148 / 65 mmHgHeart Rate: Location:[facility] Room #: 2N14 Staffing Account Manager:Amarilis Chacon, JJ Referring MD:Flavio Solre MD clinical exercise specialist:Antonieta Daly CNP Reading MD:Darion Awad MD Primary Indications:Dizziness, Headache Risk Factors Yes/No Hypertension Yes Hypercholesterolemia Yes Impressions: The right internal carotid artery has a 60-79% stenosis. The left internal carotid artery has a 60-79% stenosis. Recommendations: Risk factor reduction. Further evaluation recommended if clinically indicated. Follow-up carotid duplex in 1 year. Findings Carotid Duplex: Right: The right proximal common carotid artery has a PSV of 96 cm/s and a EDV of 20 cm/s. The right mid common carotid artery has a PSV of 98 cm/s and a EDV of 22 cm/s. The right distal common carotid artery has a PSV of 117 cm/s and a EDV of 22 cm/s. There is nonstenotic plaque in the right bifurcation with a PSV of 128 cm/s and a EDV of 35 cm/s. There is smooth plaque. The right proximal internal carotid artery has a PSV of 117 cm/s and a EDV of 29 cm/s. The right mid internal carotid artery has a PSV of 145 cm/s and a EDV of 42 cm/s. There is 60-79% stenosis in the right distal internal carotid artery with a PSV of 142 cm/s and a EDV of 37 cm/s. The right eca has a PSV of 164 cm/s and a EDV of 22 cm/s. The right vertebral artery has a PSV of 75 cm/s and a EDV of 13 cm/s. There is antegrade spectral Doppler flow patterns. Left: The left proximal common carotid artery has a PSV of 94 cm/s and a EDV of 19 cm/s. The left mid common carotid artery has a PSV of 67 cm/s and a EDV of 20 cm/s. The left distal common carotid artery has a PSV of 91 cm/s and a EDV of 24 cm/s. There is nonstenotic plaque in the left bifurcation with a PSV of 100 cm/s and a EDV of 21 cm/s. There is nonstenotic plaque in the left proximal internal carotid artery with a PSV of 81 cm/s and a EDV of 24 cm/s. There is 60-79% stenosis in the left mid internal carotid artery with a PSV of 141 cm/s and a EDV of 35 cm/s. The left distal internal carotid artery has a PSV of 125 cm/s and a EDV of 38 cm/s. The left eca has a PSV of 158 cm/s and a EDV of 20 cm/s. The left vertebral artery has a PSV of 100 cm/s and a EDV of 20 cm/s. There is antegrade spectral Doppler flow patterns. Prior Study: No prior study available for comparison. Carotid Results Right PSV EDV Assessment Proximal CCA 96 20 Mid CCA 98 22 Distal CCA 117 22 Bifurcation 128 35 Non Stenotic Plaque Proximal ICA 117 29 Mid ICA 145 42 60-79% stenosis Distal ICA 142 37 60-79% stenosis ECA 164 22 Vertebral Artery 75 13 Antegrade Flow Left PSV EDV Assessment Proximal CCA 94 19 Mid CCA 67 20 Distal CCA 91 24 Bifurcation 100 21 Non Stenotic Plaque Proximal ICA 81 24 Non Stenotic Plaque Mid ICA 141 35 60-79% stenosis Distal ICA 125 38 ECA 158 20 Vertebral Artery 100 20 Antegrade Flow Ratio's Right ICA/CCA Ratio: 1.48 ICA/CCA Values: 145/98 Left ICA/CCA Ratio: 2.10 ICA/CCA Values: 141/67 Updated by Darion Awad MD on 11/01/2016 5:17:50 PM electronically signed on 11/01/2016 5:18:04 PM with status of Final
[2016-11-01] MEDS: Chlorhexidine Rinse 15 ML MOUTHWASH MM SCH (21:15)
[2016-11-02] MEDS: Heparin 25,000 UNIT/500 ML D5W 25,000 UNIT/500 ML MLS IVC SCH ×2 (03:41→03:45)
[2016-11-02] MEDS ORDERED: ceFAZolin 2,000 MG in D5% in Water 100 ML IVPB ONE (06:00)
[2016-11-02] MEDS ORDERED: Aspirin 81 MG TAB.CHEW PO ONE (06:00)
[2016-11-02] MEDS ORDERED: Famotidine 20 MG/2 ML VIAL ONE (06:34)
[2016-11-02] MEDS ORDERED: *HR* Phenylephrine 10 MG/ML VIAL ONE (06:34)
[2016-11-02] MEDS ORDERED: *HR* Etomidate 20 MG/10 ML AMPUL IVP ONE (06:34)
[2016-11-02] MEDS ORDERED: *HR* Norepinephrine 4 MG/4 ML VIAL IVC ONE (06:34)
[2016-11-02] MEDS ORDERED: *HR* Rocuronium Bromide 50 MG/5 ML VIAL ONE (06:34)
[2016-11-02] MEDS ORDERED: Protamine Sulfate 250 MG/25 ML VIAL IVP ONE (06:35)
[2016-11-02] MEDS ORDERED: Tranexamic Acid 1,000 MG/10 ML VIAL ONE ×2 (06:35→09:17)
[2016-11-02] MEDS ORDERED: *HR* FentaNYL (PF) 1,000 MCG/20 ML VIAL ONE (06:43)
[2016-11-02] MEDS ORDERED: *HR* Midazolam HCl 5 MG/5 ML VIAL IVP ONE (06:43)
[2016-11-02] MEDS ORDERED: Nitroglycerin 25 MG/250 ML INFUS..BTL IVC ONE (06:46)
[2016-11-02] MEDS ORDERED: NiCARdipine 2.5 MG/10 ML Syringe IVPB ONE (06:47)
--- NOTE | 2016-11-02 09:23 | Anesthesia Procedures ---
Date of Encounter: 11/02/16 Time of Encounter: 07:50 Procedures: Anesthesia - Arterial Line Consent obtained: written consent Time out performed: Yes Sedation: Versed (mg): 2 Sedation: Fentanyl (mcg): 100 Supplemental Oxygen via Nasal Cannula (L/min): 2 Local Anesthetic: Lidocaine 1% Size (Gauge): 20 Length (inches): 5 Technique Used: sterile prep, guide wire technique, direct puncture technique Post-Procedure: line sutured into place, line taped into place, dry sterile dressing placed Patient tolerated procedure: well, no complications Complications: none Site: Brachial L (attempted left radial. able to access artery x 2 but unable to advance wire. Place brachial with 1 attempt and placed easily) - Central Line Placement Right IJ Consent obtained: written consent Time out performed: Yes Patient placed on monitor/pulse ox: Yes prep: mask, gown, gloves Central line prep: Chlorhexidine scrub Ultrasound used for placement: Yes Technique: Seldinger Lumen Inserted: Introducer Post procedure: sutured in place, good blood return, all ports aspirated, flushed, capped, sterile dressing applied Patient tolerated procedure: well, no complications Complications: none (introducer placed easily. [place] floated without arrythmia, wedge approx 55cm)
[2016-11-02] MEDS ORDERED: Protamine Sulfate 50 MG/5 ML VIAL IVP ONE ×2 (10:27→10:36)
[2016-11-02] MEDS ORDERED: 0.9 % Sodium Chloride 1,000 ML ONE (11:12)
[2016-11-02] MEDS ORDERED: *HR* Dextrose 50 % in Water (Syg) 50 ML SYRINGE IVP PRN (11:20)
[2016-11-02] MEDS ORDERED: Acetaminophen 650 MG RECTAL SUPP RC PRN (11:20)
[2016-11-02] MEDS ORDERED: Magnesium Sulfate 2 GM in D5% in Water 100 ML IVPB PRN (11:20)
[2016-11-02] MEDS ORDERED: *HR* Morphine 2 MG/ML SYRINGE IVP PRN (11:20)
[2016-11-02] MEDS ORDERED: Potassium Chloride 40 MEQ/200 ML BAG IVPB PRN (11:20)
[2016-11-02] MEDS ORDERED: Calcium Chloride 1,000 MG in 0.9 % Sodium Chloride 100 ML IVPB PRN (11:20)
[2016-11-02] MEDS ORDERED: Insulin Regular, Human 100 UNIT/ML IV PRN (11:20)
[2016-11-02] MEDS ORDERED: 0.9 % Sodium Chloride w KCl 20 MEQ/1,000 ML MLS IVC SCH (11:30)
--- NOTE | 2016-11-02 11:34 | Operative Note ---
Date of procedure: 11/02/16 Pre-op diagnosis: CAD Post-op diagnosis: same Procedure: 1. CABG 3 (CONN to LAD, sequential SVG to ramus intermediate branch then OM1). 2. Endoscopic vein harvesting, greater saphenous vein from right lower extremity. Implants: None. Complications: None. Anesthesia: NAEEM Surgeon: Apurva Cullen Armature Bander: Isaiah Jefferson Specimen: None. Condition: stable Disposition: ICU Procedure in Detail: INDICATIONS FOR OPERATION: The patient is a 76-year-old hypertensive lady with hypercholesterolemia who has had intermittent, exertional, nonradiating substernal chest pain and pressure for approximately 2 years. The symptoms have become progressively more frequent and severe. She underwent a nuclear stress test which revealed an LVEF 73% with ischemia in the anterior, anteroseptal, and apical mares. Subsequent cardiac catheterization revealed severe 3 vessel CAD. In particular patient had a 60-80% distal left main lesion, a 99% proximal LAD lesion, a 60-80% proximal ramus intermediate branch lesion, and an 80% proximal LCx lesion. The patient has recommended for CABG. FINDINGS AT OPERATION: The aorta was of normal caliber and slightly thickened. No overt calcifications were noted. The coronary arteries measure approximately 1.25-1.5 mm in diameter and had mild distal disease. The greater saphenous vein was harvested endoscopically from the right lower extremity from the knee to the groin of good quality. The total bypass time was 61 minutes, cross-clamp time 40 minutes , intentional hypothermia of 34.5C. DESCRIPTION OF OPERATION: After obtaining informed option for the patient, she was taken to the operating room were a satisfactory general endotracheal anesthetic was induced. Appropriate monitoring lines were placed, and the patient's chest, abdomen, and lower extremities were prepped and draped in a sterile fashion. The greater saphenous vein was harvested endoscopically from the right lower extremity from the knee to the groin. The vein was removed, distended, and found to be of good quality. The subcutaneous tissue and skin edges were reapproximated using running Vicryl sutures. Simultaneously, a standard medium sternotomy incision was made and the sternum divided. The CONN was taken out from its bed and side branches divided between hemoclips. The sternum was and the pericardium opened and reflected laterally. The patient was prepared for cannulation by placing pursestring sutures in the distal ascending aorta, mid-ascending aorta, and right atrial appendage. The patient was heparinized and was used to is graded 200 seconds, the distal ascending aorta was cannulated followed by placement of a dual stage venous cannula through the right atrial appendage and into the inferior vena cava. A stab-in antegrade metabolic and was placed in the mid-ascending aorta. The patient was placed on bypass and the temperature allowed to drift to 34.5 C. The distal targets were identified and the aorta was crossclamped. The patient received 700 mL of cold antegrade crystalloid cardioplegia through the aortic root and the patient's heart obtain rapid diastolic arrest. The OM1 branch was opened be ablated the vein was anastomosed in end-to-side fashion using running 7-0 Prolene suture. The ramus intermediate branch was opened with a [place] blade and the vein was opened in longitudinal fashion so the [id number] anastomosis could be completed using a running 7-0 Prolene suture. The anastomosis found to be hemostatic and the patient stated fibrosis of cold antegrade crystalloid cardioplegia through the aortic root. The LAD was opened with a blade and found to be small, measuring approximately 1.25 mm in diameter. The CONN was anastomosed to the LAD in an end-to-side fashion using running 7-0 Prolene suture. The anastomosis found to be hemostatic and the mammary pedicle was tacked to the epicardium using interrupted 5-0 silk suture. Rewarming was begun during this anastomosis. The aortic cross-clamp was released and the heart distended. The vein was measured and cut to appropriate length. A partial occluding clamps placed across the midascending aorta and the antegrade cardioplegia cannula was removed. The aortotomy site was enlarged performing a punch and the vein was anastomosed in an end-to-side fashion to the aorta using running 5-0 Prolene suture. The vein graft was occluded with a bulldog clamp and de-aired with a 25- gauge needle prior to removing the partial occluding clamp. The proximal and distal anastomoses were found to be hemostatic and the proximal anastomosis was marked with radiopaque loop. Two right ventricular temporary patient was placed, and 3 chest tubes were placed, 2 in the mediastinum once the left pleural space. During rewarming the patient's heart regained normal sinus rhythm spontaneously. When the patient's systemic temperature reached 36C, she was ventilated and received volume. She was weaned from bypass required no inotropic support. Protamine was administered and the aortic and venous cannulae were removed. The aortic cannulation site was reinforced with a pledgeted 4-0 Prolene suture and the venous cannulation site required multiple 4-0 Prolene's pledgeted sutures in order to obtain hemostasis. The pericardium could not be reapproximated over the midline due to excessive tension. The sternum was reapproximated using sternal wires, and the pectoralis major fascia, rectus abdominis fascia, subcutaneous tissue, and skin edges were reapproximated using running Vicryl sutures. Sterile dressings were applied. The patient was transferred to the ICU in satisfactory postoperative condition. There were no intraoperative complications, and the instrument, needle, and sponge count were correct at the end of operation. - Open Heart Detail MALIA (Internal Mammary Artery) Usage: Yes Cardiopulmonary Bypass Time (mins): 61 Aortic Cross Clamp Time (mins): 40 Intentional Hypothermia Temperature (C.): 34.5
[2016-11-02] MEDS: Nitroglycerin 25 MG/250 ML INFUS..BTL IVC SCH ×2 (11:45→23:29)
[2016-11-02] MEDS: Norepinephrine 4 MG in D5% in Water 250 ML IVC SCH (12:00)
[2016-11-02 12:07] LABS: ABG Base Excess 4.2 mEq/L (-2.0 to 3.0); ABG HCO3 25.7 mEQ/L (21-27); ABG Oxygen Saturation 99 % (95-98); ABG PCO2 28 mmHg (35-45); ABG PH 7.57 pH Units (7.32-7.45); ABG PO2 111 mmHg (85-104); ABG TCO2 26.6 mEq/L (20-26); Basophils % 0.1 %; Immature Granulocytes % 0.6 % (0-4)
[2016-11-02 12:08] LABS: Hematocrit 33.2 % (35.3-44.9); Hemoglobin 11.2 g/dL (11.5-15.4); Lymphocytes % 21.1 %; Mean Corpuscular HGB Conc 33.7 g/dL (31.6-35.5); Mean Corpuscular Hemoglobin 30.2 pg (28.0-33.3); Mean Corpuscular Volume 89.5 fL (83.0-100.0); Mean Platelet Volume 8.7 fL (9.4-12.4); Monocytes % 5.4 %; Red Cell Distribution Width 14.1 % (11.5-14.5); Segmented Neutrophils % 69.9 %
[2016-11-02 12:09] LABS: Eosinophils # 0.3 K/mcL (0.0-0.6); Eosinophils % 2.9 %; Lymphocytes # 2.1 K/mcL (0.6-4.6); Monocytes # 0.5 K/mcL (0.0-1.3); Neutrophils # 6.9 K/mcL (1.6-8.9)
[2016-11-02 12:10] LABS: Blood Gas FiO2 40 %
[2016-11-02 12:12] LABS: INR 1.5; Prothrombin Time 16.9 Seconds (9.4-12.1)
[2016-11-02 12:13] LABS: Platelet Count 35 K/mcL (140-400); Red Blood Count 3.71 M/mcL (3.82-4.97)
[2016-11-02 12:15] LABS: Activated Partial Thrombo Time 47.2 Seconds (26.0-36.0)
[2016-11-02 12:27] LABS: Platelet Estimate Marked Decrease (Normal)
[2016-11-02 12:29] LABS: BUN/Creatinine Ratio 14 (6-26); Blood Urea Nitrogen 11 mg/dL (7-20); Calcium 8.5 mg/dL (8.6-10.8); Carbon Dioxide 24 mEq/L (19-29); Chloride 114 mEq/L (98-109); Glucose 51 mg/dL (70-99); Magnesium 2.7 mg/dL (1.6-2.6); Osmolality,Calculated 305 (280-300); Potassium 3.2 mEq/L (3.5-4.5); Sodium 149 mEq/L (136-145); eGFR For African Americans > 60 (> 60); eGFR For Non-African Americans > 60 (> 60)
[2016-11-02] MEDS: Metoclopramide 10 MG/2 ML VIAL IVP SCH ×3 (12:35→23:28)
[2016-11-02] MEDS ORDERED: niCARdipine 40 MG/200 ML MLS IVC ONE (13:38)
[2016-11-02] MEDS: niCARdipine 40 MG/200 ML MLS IVC SCH ×2 (13:40→19:50)
[2016-11-02] MEDS: *HR* OxyCODONE/APAP 5/325 TABLET PO PRN ×3 (13:44→21:33)
[2016-11-02 13:49] LABS: ABG Base Excess 0.3 mEq/L (-2.0 to 3.0); ABG Glucose 101 mg/dL (60-95); ABG HCO3 28.2 mEQ/L (21-27); ABG Ionized Calcium 1.14 mmol/L (1.15-1.35); ABG Oxygen Saturation 99 % (95-98); ABG PCO2 60 mmHg (35-45); ABG PH 7.28 pH Units (7.32-7.45); ABG PO2 174 mmHg (85-104)
[2016-11-02 13:51] LABS: ABG PH 7.46 pH Units (7.32-7.45)
[2016-11-02 13:52] LABS: ABG Base Excess 2.5 mEq/L (-2.0 to 3.0); ABG Glucose 117 mg/dL (60-95); ABG HCO3 26.3 mEQ/L (21-27); ABG Oxygen Saturation 100 % (95-98); ABG PCO2 37 mmHg (35-45); ABG PO2 511 mmHg (85-104); ABG TCO2 27.4 mEq/L (20-26)
[2016-11-02 13:54] LABS: ABG Base Excess -4.5 mEq/L (-2.0 to 3.0); ABG HCO3 18.8 mEQ/L (21-27); ABG Oxygen Saturation 100 % (95-98); ABG PCO2 27 mmHg (35-45); ABG PH 7.45 pH Units (7.32-7.45); ABG PO2 162 mmHg (85-104); ABG TCO2 19.6 mEq/L (20-26)
[2016-11-02 13:55] LABS: ABG Glucose 86 mg/dL (60-95); ABG Ionized Calcium 0.78 mmol/L (1.15-1.35)
[2016-11-02 13:57] LABS: ABG Base Excess 2.9 mEq/L (-2.0 to 3.0); ABG Glucose 166 mg/dL (60-95); ABG HCO3 26.3 mEQ/L (21-27); ABG Ionized Calcium 0.82 mmol/L (1.15-1.35); ABG Oxygen Saturation 100 % (95-98); ABG PCO2 33 mmHg (35-45); ABG PH 7.51 pH Units (7.32-7.45); ABG PO2 578 mmHg (85-104); ABG TCO2 27.3 mEq/L (20-26)
[2016-11-02 13:59] LABS: VBG HCO3 28.2 mEq/L (21-27); VBG Ionized Calcium 0.92 mmol/L (1.15-1.35); VBG PH 7.49 pH Units (7.32-7.42)
[2016-11-02 14:01] LABS: ABG Base Excess 4.2 mEq/L (-2.0 to 3.0); ABG HCO3 28.4 mEQ/L (21-27); ABG Oxygen Saturation 100 % (95-98); ABG PCO2 40 mmHg (35-45); ABG PH 7.46 pH Units (7.32-7.45); ABG PO2 542 mmHg (85-104); ABG TCO2 29.6 mEq/L (20-26)
[2016-11-02 14:02] LABS: ABG Glucose 139 mg/dL (60-95); ABG Ionized Calcium 0.93 mmol/L (1.15-1.35)
[2016-11-02 14:04] LABS: ABG Base Excess 0.6 mEq/L (-2.0 to 3.0); ABG Glucose 72 mg/dL (60-95); ABG HCO3 27.4 mEQ/L (21-27); ABG Ionized Calcium 1.34 mmol/L (1.15-1.35); ABG Oxygen Saturation 99 % (95-98); ABG PCO2 57 mmHg (35-45); ABG PH 7.29 pH Units (7.32-7.45); ABG PO2 169 mmHg (85-104); ABG TCO2 29.1 mEq/L (20-26)
[2016-11-02] MEDS: Chlorhexidine Rinse 15 ML MOUTHWASH MM SCH ×2 (14:29→19:43)
[2016-11-02] MEDS: Cholecalciferol (D-3) 1,000 UNIT TABLET PO SCH (14:29)
[2016-11-02] MEDS: Insulin Human Regular 100 UNIT in 0.9 % Sodium Chloride 100 ML IVC SCH (15:09)
--- NOTE | 2016-11-02 15:48 | Electrocardiograph Report ---
[address] [place], [place] [address] Test Date: 2016-11-02 Pat Name: Dolores Lundy Department: 109 Room: [facility] Gender: F Mental Hygienist: AMBAR : 1940 Requested By: Apurva Cullen Order Number: [id number] Reading MD: Damon Clay MD Measurements Intervals [place] Rate: 74 P: 32 AR: 197 QRS: 63 QRSD: 89 T: 70 QT: 446 QTc: 473 Interpretive Statements SINUS RHYTHM BASELINE ARTIFACT COMPLICATES ACCURATE INTERPRETATION ANTERIOR ISCHEMIA Electronically Signed On 11-02-2016 15:46:25 EDT by Damon Clay MD
[2016-11-02 16:04] LABS: Hemoglobin 11.7 g/dL (11.5-15.4); Red Cell Distribution Width 14.4 % (11.5-14.5)
[2016-11-02 16:06] LABS: Hematocrit 34.3 % (35.3-44.9); Immature Platelets 2.7 % (1.1-6.1); Mean Corpuscular HGB Conc 34.1 g/dL (31.6-35.5); Mean Corpuscular Hemoglobin 30.1 pg (28.0-33.3); Mean Corpuscular Volume 88.2 fL (83.0-100.0); Mean Platelet Volume 9.6 fL (9.4-12.4); Red Blood Count 3.89 M/mcL (3.82-4.97)
[2016-11-02 16:07] LABS: ABG Base Excess 5.8 mEq/L (-2.0 to 3.0); ABG HCO3 27.5 mEQ/L (21-27); ABG Oxygen Saturation 98 % (95-98); ABG PCO2 30 mmHg (35-45); ABG PH 7.57 pH Units (7.32-7.45); ABG PO2 83 mmHg (85-104); ABG TCO2 28.4 mEq/L (20-26)
[2016-11-02 16:10] LABS: Blood Gas FiO2 30 %
[2016-11-02] MEDS: *HR* Morphine 2 MG/ML SYRINGE IVP PRN (16:22)
[2016-11-02] MEDS: ceFAZolin 2,000 MG in D5% in Water 100 ML IVPB SCH (17:48)
[2016-11-02] MEDS: Ondansetron 4 MG/2 ML VIAL IVP PRN ×2 (18:02→22:46)
[2016-11-02 20:07] LABS: ABG Base Excess 1.5 mEq/L (-2.0 to 3.0); ABG HCO3 25.9 mEQ/L (21-27); ABG Oxygen Saturation 99 % (95-98); ABG PCO2 39 mmHg (35-45); ABG PH 7.43 pH Units (7.32-7.45); ABG PO2 115 mmHg (85-104); ABG TCO2 27.1 mEq/L (20-26); Blood Gas FiO2 30 %
[2016-11-02 21:09] LABS: ABG Base Excess 0.2 mEq/L (-2.0 to 3.0); ABG Oxygen Saturation 94 % (95-98); ABG PCO2 46 mmHg (35-45); ABG PH 7.36 pH Units (7.32-7.45); ABG PO2 74 mmHg (85-104); ABG TCO2 27.4 mEq/L (20-26)
[2016-11-02 21:10] LABS: Blood Gas FiO2 30 %
[2016-11-02 22:55] LABS: Hematocrit 30.6 % (35.3-44.9)
[2016-11-02] MEDS ORDERED: DOPamine Premix 0 MG/0 ML BAG ONE (23:17)
[2016-11-02 23:43] LABS: ABG HCO3 24.2 mEQ/L (21-27); ABG Oxygen Saturation 94 % (95-98); ABG PCO2 47 mmHg (35-45); ABG PO2 76 mmHg (85-104); ABG TCO2 25.6 mEq/L (20-26)
[2016-11-02 23:47] LABS: ABG PH 7.32 pH Units (7.32-7.45); Blood Gas FiO2 28 %
[2016-11-02] MEDS ORDERED: D5% in Water 250 ML ONE (23:52)
[2016-11-03] MEDS: *HR* Morphine 2 MG/ML SYRINGE IVP PRN ×7 (00:10→22:46)
[2016-11-03] MEDS: ceFAZolin 2,000 MG in D5% in Water 100 ML IVPB SCH (01:01)
[2016-11-03] MEDS: Norepinephrine 4 MG in D5% in Water 250 ML IVC SCH ×3 (01:38→14:05)
[2016-11-03] MEDS: niCARdipine 40 MG/200 ML MLS IVC SCH ×3 (03:03→22:48)
[2016-11-03 03:06] LABS: Basophils % 0.1 %; Hematocrit 29.8 % (35.3-44.9); Hemoglobin 9.7 g/dL (11.5-15.4); Immature Granulocytes % 0.5 % (0-4); Lymphocytes # 0.6 K/mcL (0.6-4.6); Lymphocytes % 6.2 %; Mean Corpuscular HGB Conc 32.6 g/dL (31.6-35.5); Mean Corpuscular Volume 92.3 fL (83.0-100.0); Mean Platelet Volume 10.1 fL (9.4-12.4); Monocytes # 0.8 K/mcL (0.0-1.3); Monocytes % 9.4 %; Red Blood Count 3.23 M/mcL (3.82-4.97); Red Cell Distribution Width 15.1 % (11.5-14.5); Segmented Neutrophils % 83.8 %
[2016-11-03 03:07] LABS: Neutrophils # 7.5 K/mcL (1.6-8.9); Platelet Count 66 K/mcL (140-400)
[2016-11-03 03:09] LABS: INR 1.2
[2016-11-03 03:16] LABS: BUN/Creatinine Ratio 14 (6-26); Blood Urea Nitrogen 15 mg/dL (7-20); Carbon Dioxide 23 mEq/L (19-29); Chloride 111 mEq/L (98-109); Glucose 154 mg/dL (70-99); Magnesium 1.8 mg/dL (1.6-2.6); Osmolality,Calculated 298 (280-300); Potassium 3.8 mEq/L (3.5-4.5); Sodium 142 mEq/L (136-145); eGFR For African Americans > 60 (> 60); eGFR For Non-African Americans 50 (> 60)
[2016-11-03] MEDS: *HR* OxyCODONE/APAP 5/325 TABLET PO PRN ×3 (03:31→23:24)
[2016-11-03] MEDS: Metoclopramide 10 MG/2 ML VIAL IVP SCH ×4 (05:01→23:24)
--- NOTE | 2016-11-03 07:23 | Cardiothoracic Progress Note ---
Date of Encounter: 11/03/16 Time of Encounter: 07:20 - Assessment and plan (1) Coronary artery disease Current Visit: Yes Status: Acute The patient is recovering well from her CABG3. She had an episode of junctional rhythm last evening which resulted in hypotension. This was corrected with a dobutamine drip and Levophed drip. She is extubated and breathing comfortably. The Levophed drip will be weaned initially followed by the dobutamine drip. The arterial line, Whitaker catheter, and [place]Bernabe catheter will remain in place. The assessment and plan as outlined above was discussed with the patient and/or family members who expressed understanding and agreement. All questions were answered. Qualifiers: Coronary Disease-Associated Artery/Lesion type: [place] artery [place] vs. transplanted heart: [place] heart Associated angina: with stable angina Qualified Code(s): I25.118 - Atherosclerotic heart disease of [place] coronary artery with other forms of angina pectoris - Subjective Procedure(s) Performed: POD#1 S/P CABG3 Interval history: The patient remained hemodynamically stable after her episode of junctional rhythm and decreased blood pressure was corrected. She is extubated and breathing comfortably. She has no complaints. Vital Signs, Last 4 Hours Temp Pulse Resp BP Pulse Ox 11/03/16 06:02 98.6 F 86 16 95/48 94 11/03/16 05:00 98.6 F 92 15 93/44 94 11/03/16 04:00 98.6 F 98 17 114/52 94 11/03/16 03:51 20 94 Oxgyen Flow Rate Oxygen Flow Rate (LPM) 2 Clinical Data, last 8 Hours Output, Chest Tube Drainage 20 Amount [mediastinal 3] Output, Chest Tube Drainage 20 Amount [mediastinal 3] Output, Chest Tube Drainage 10 Amount [mediastinal 3] Output, Chest Tube Drainage 15 Amount [mediastinal 3] Output, Chest Tube Drainage 10 Amount [mediastinal 3] Output, Chest Tube Drainage 15 Amount [mediastinal 3] Output, Chest Tube Drainage 5 Amount [medistinal 1 & 2] Output, Chest Tube Drainage 10 Amount [medistinal 1 & 2] Output, Chest Tube Drainage 10 Amount [medistinal 1 & 2] Output, Chest Tube Drainage 20 Amount [medistinal 1 & 2] Output, Chest Tube Drainage 10 Amount [medistinal 1 & 2] Output, Chest Tube Drainage 10 Amount [medistinal 1 & 2] Output, Chest Tube Drainage 45 Amount [medistinal 1 & 2] Weight 11/01/16 11/02/16 11/03/16 23:59 23:59 23:59 Weight 60.7 kg 61.2 kg - Physical Examination General: Conversant, No Apparent Distress Neck: No JVD, Normal carotid pulses Cardiac: Reg Rate and Rhythm, Normal S1 and S2, No Murmur Incision: No signs of infection, Dry/intact dressing Sternum: Stable Chest tubes: Minimal drainage Pacing Wires: In place Lungs: Normal Breath Sounds, No Wheeze, Rales, Rhonchi Neuro: Alert and responsive, No focal deficits noted Vascular: Normal capillary refill Extremities: No Clubbing, No Cyanosis, No Edema - Labs 11/03/16 03:00 11/03/16 03:00 Lab Results, Last 24 hours 11/02/16 11/02/16 11/02/16 11:55 11:55 11:55 WBC 9.9 D Hgb 11.2 L Hct 33.2 L Plt Count 35 L D INR 1.5 APTT 47.2 H Sodium 149 H D Potassium 3.2 L Chloride 114 H Carbon Dioxide 24 BUN 11 Creatinine 0.77 Glucose 51 L Calcium 8.5 L Magnesium 2.7 H 11/02/16 11/02/16 11/02/16 15:55 15:55 19:40 WBC 11.3 H Hgb 11.7 Hct 34.3 L Plt Count 73 L D INR APTT Sodium Potassium 2.8 L 3.9 D Chloride Carbon Dioxide BUN Creatinine Glucose Calcium Magnesium 11/02/16 11/03/16 11/03/16 22:45 03:00 03:00 WBC 8.9 Hgb 10.0 L D 9.7 L Hct 30.6 L 29.8 L Plt Count 66 L INR 1.2 APTT 32.0 Sodium Potassium Chloride Carbon Dioxide BUN Creatinine Glucose Calcium Magnesium 11/03/16 03:00 WBC Hgb Hct Plt Count INR APTT Sodium 142 Potassium 3.8 Chloride 111 H Carbon Dioxide 23 BUN 15 Creatinine 1.06 Glucose 154 H Calcium 8.0 L Magnesium 1.8 - Imaging Chest Xray: image reviewed (Stable cardiomegaly. No pneumothorax. Normal atelectasis/infiltrates.) - VTE Documentation of Mechanical Device: Graduated compression elastic hosiery Consult Discharge Plan - Plan Referrals: Antonieta Daly, BODY FINISHER [Primary Care Provider] - ()
[2016-11-03] MEDS ORDERED: Heparin 1,000 UNITS/500 mL NS 500 ML ONE (07:57)
[2016-11-03] MEDS: Furosemide 20 MG/2 ML VIAL IVP SCH ×2 (07:59→16:59)
[2016-11-03] MEDS: Cholecalciferol (D-3) 1,000 UNIT TABLET PO SCH (08:13)
[2016-11-03] MEDS: Aspirin Enteric Coated 81 MG Tablet PO SCH (08:13)
[2016-11-03] MEDS: Pantoprazole 40 MG VIAL IVP SCH (08:14)
[2016-11-03] MEDS: Chlorhexidine Rinse 15 ML MOUTHWASH MM SCH ×2 (08:14→19:48)
[2016-11-03] MEDS ORDERED: Furosemide 20 MG/2 ML VIAL IVP SCH (09:00)
[2016-11-03] MEDS: Ondansetron 4 MG/2 ML VIAL IVP PRN ×2 (10:36→19:48)
[2016-11-03] MEDS: Insulin Human Regular 100 UNIT in 0.9 % Sodium Chloride 100 ML IVC SCH (12:55)
--- NOTE | 2016-11-03 13:32 | Anesthesia Evaluation Post Op ---
Date of Encounter: 11/03/16 Time of Encounter: 12:00 - Vital Signs Vital Signs: Selected Entries 11/03/16 12:00 Pulse Rate 93 Respiratory Rate 16 Blood Pressure 101/43 O2 Sat by Pulse Oximetry 92 Oxygen Flow Rate (LPM) 2 - Lungs Lungs: Clear Ascult./Percussion - Airway Airway: Non-obstructed - Cardiovascular Regular Rate - Mental Status Mental Status: Alert & Oriented, Answers Appropriately - Pain Pain Scale: 3 Pain Scale used: Numeric (1 - 10) - Nausea Vomiting Nausea Vomiting: Not Present - Hydration Hydration: Tolerates oral liquids, Whitaker catheter Notes: 11/03/16 13:30 patient doing well POD#1. No apprent anesthesia complications. Will remain in ICU until CT Surgery decides to transfer
[2016-11-03] MEDS ORDERED: Dextrose Gel 15 GM PO PRN ×2 (17:12)
[2016-11-03] MEDS ORDERED: D5% in Water 1,000 ML IVC PRN (17:12)
[2016-11-03] MEDS ORDERED: *HR* Dextrose 50 % in Water (Syg) 50 ML SYRINGE IVP PRN (17:12)
[2016-11-03] MEDS: Insulin LISPRO 300 UNITS/3 ML VIAL SQ SCH ×2 (17:22→19:49)
[2016-11-03] MEDS: Nitroglycerin 25 MG/250 ML INFUS..BTL IVC SCH (19:42)
[2016-11-04] MEDS: *HR* HYDROcodone/Acet 5/325 mg TABLET PO PRN ×2 (02:00→08:36)
[2016-11-04] MEDS: Ondansetron 4 MG/2 ML VIAL IVP PRN ×3 (02:03→12:45)
[2016-11-04] MEDS: Norepinephrine 4 MG in D5% in Water 250 ML IVC SCH ×2 (02:04→16:27)
[2016-11-04 04:25] LABS: Basophils % 0.1 %; Immature Granulocytes % 0.4 % (0-4)
[2016-11-04 04:27] LABS: Eosinophils % 0.2 %; Hematocrit 29.8 % (35.3-44.9); Hemoglobin 9.5 g/dL (11.5-15.4); Immature Platelets 6.1 % (1.1-6.1); Lymphocytes # 0.8 K/mcL (0.6-4.6); Lymphocytes % 7.1 %; Mean Corpuscular HGB Conc 31.9 g/dL (31.6-35.5); Mean Platelet Volume 10.5 fL (9.4-12.4); Monocytes # 1.2 K/mcL (0.0-1.3); Monocytes % 10.4 %; Neutrophils # 9.2 K/mcL (1.6-8.9); Red Blood Count 3.17 M/mcL (3.82-4.97); Red Cell Distribution Width 15.5 % (11.5-14.5); Segmented Neutrophils % 81.8 %
[2016-11-04] MEDS: Nitroglycerin 25 MG/250 ML INFUS..BTL IVC SCH ×2 (04:28→18:13)
[2016-11-04 04:30] LABS: Platelet Count 70 K/mcL (140-400)
[2016-11-04 04:46] LABS: BUN/Creatinine Ratio 19 (6-26); Blood Urea Nitrogen 19 mg/dL (7-20); Calcium 8.5 mg/dL (8.6-10.8); Carbon Dioxide 24 mEq/L (19-29); Chloride 105 mEq/L (98-109); Glucose 182 mg/dL (70-99); Osmolality,Calculated 291 (280-300); Sodium 137 mEq/L (136-145); eGFR For African Americans > 60 (> 60); eGFR For Non-African Americans 55 (> 60)
[2016-11-04] MEDS: Metoclopramide 10 MG/2 ML VIAL IVP SCH ×3 (05:17→18:11)
--- NOTE | 2016-11-04 07:28 | Cardiothoracic Progress Note ---
Date of Encounter: 11/04/16 Time of Encounter: 07:26 - Assessment and plan (1) Coronary artery disease Current Visit: Yes Status: Acute The chest tubes were removed. We will check a stat portable chest x-ray. We will discontinue the arterial line, [place]Bernabe catheter and Whitaker. We will wean the norepinephrine and dobutamine drips as tolerated. We will leave the patient in the ICU today. Qualifiers: Coronary Disease-Associated Artery/Lesion type: [place] artery [place] vs. transplanted heart: [place] heart Associated angina: with stable angina Qualified Code(s): I25.118 - Atherosclerotic heart disease of [place] coronary artery with other forms of angina pectoris (2) Angina pectoris Current Visit: Yes Status: Acute The assessment and plan as outlined above was discussed with the patient and/or family members who expressed understanding and agreement. All questions were answered. - Subjective Interval history: The patient complains of mild postoperative pain. Vital Signs, Last 4 Hours Temp Pulse Resp BP Pulse Ox 11/04/16 06:00 108 18 110/54 91 11/04/16 05:00 101 18 110/53 92 11/04/16 04:30 104 18 103/50 92 11/04/16 03:45 97.5 F L 103 18 101/49 93 11/04/16 03:31 16 101/55 90 Oxgyen Flow Rate Oxygen Flow Rate (LPM) 2 Clinical Data, last 8 Hours Output, Chest Tube Drainage 30 Amount [mediastinal 3] Output, Chest Tube Drainage 40 Amount [medistinal 1 & 2] Weight 11/02/16 11/03/16 11/04/16 23:59 23:59 23:59 Weight 61.2 kg Lungs are clear to percussion and auscultation. Heart is in a sinus tachycardia. All incisions are healing well without signs of infection and the sternum is stable. Chest tube drainage is minimal and there is no air leak. - Labs 11/04/16 04:00 11/04/16 04:00 Lab Results, Last 24 hours 11/04/16 11/04/16 04:00 04:00 WBC 11.2 H Hgb 9.5 L Hct 29.8 L Plt Count 70 L Sodium 137 Potassium 4.0 Chloride 105 Carbon Dioxide 24 BUN 19 Creatinine 0.98 Glucose 182 H Calcium 8.5 L - VTE Documentation of Mechanical Device: Graduated compression elastic hosiery Consult Discharge Plan - Plan Referrals: Antonieta Daly, COMPARISON SHOPPER [Primary Care Provider] - ()
[2016-11-04] MEDS: Pantoprazole 40 MG VIAL IVP SCH (08:29)
[2016-11-04] MEDS: Furosemide 20 MG/2 ML VIAL IVP SCH ×2 (08:31→18:11)
[2016-11-04] MEDS: Chlorhexidine Rinse 15 ML MOUTHWASH MM SCH ×2 (08:33→20:39)
[2016-11-04] MEDS: Insulin LISPRO 300 UNITS/3 ML VIAL SQ SCH ×4 (08:34→20:04)
[2016-11-04] MEDS: Aspirin Enteric Coated 81 MG Tablet PO SCH (08:37)
[2016-11-04] MEDS: niCARdipine 40 MG/200 ML MLS IVC SCH ×3 (08:37→20:04)
[2016-11-04] MEDS: Cholecalciferol (D-3) 1,000 UNIT TABLET PO SCH (11:20)
[2016-11-04] MEDS: Insulin Human Regular 100 UNIT in 0.9 % Sodium Chloride 100 ML IVC SCH (13:57)
[2016-11-04] MEDS: *HR* OxyCODONE/APAP 5/325 TABLET PO PRN (20:38)
[2016-11-05] MEDS: Metoclopramide 10 MG/2 ML VIAL IVP SCH ×3 (00:12→13:06)
[2016-11-05 05:19] LABS: Hemoglobin 9.1 g/dL (11.5-15.4); Red Cell Distribution Width 15.1 % (11.5-14.5)
[2016-11-05 05:21] LABS: Basophils % 0.1 %; Eosinophils # 0.1 K/mcL (0.0-0.6); Eosinophils % 1.1 %; Hematocrit 28.4 % (35.3-44.9); Immature Granulocytes % 0.5 % (0-4); Immature Platelets 8.6 % (1.1-6.1); Lymphocytes # 1.1 K/mcL (0.6-4.6); Lymphocytes % 13.3 %; Mean Corpuscular Volume 93.7 fL (83.0-100.0); Mean Platelet Volume 11.2 fL (9.4-12.4); Monocytes % 11.3 %; Neutrophils # 6.2 K/mcL (1.6-8.9); Red Blood Count 3.03 M/mcL (3.82-4.97); Segmented Neutrophils % 73.7 %
[2016-11-05 05:23] LABS: Platelet Count 71 K/mcL (140-400)
[2016-11-05 05:29] LABS: BUN/Creatinine Ratio 25 (6-26); Blood Urea Nitrogen 21 mg/dL (7-20); Calcium 8.9 mg/dL (8.6-10.8); Carbon Dioxide 30 mEq/L (19-29); Chloride 105 mEq/L (98-109); Glucose 120 mg/dL (70-99); Osmolality,Calculated 292 (280-300); Potassium 4.3 mEq/L (3.5-4.5); Sodium 139 mEq/L (136-145); eGFR For African Americans > 60 (> 60); eGFR For Non-African Americans > 60 (> 60)
[2016-11-05] MEDS: niCARdipine 40 MG/200 ML MLS IVC SCH ×2 (07:13→16:13)
--- NOTE | 2016-11-05 08:26 | Cardiothoracic Progress Note ---
Date of Encounter: 11/05/16 Time of Encounter: 08:24 - Assessment and plan (1) Coronary artery disease Current Visit: Yes Status: Acute We will discontinue the Whitaker. It was left in place yesterday at the patient's request. We will leave her in the ICU 1 more day to monitor her blood pressure. Qualifiers: Coronary Disease-Associated Artery/Lesion type: [place] artery [place] vs. transplanted heart: [place] heart Associated angina: with stable angina Qualified Code(s): I25.118 - Atherosclerotic heart disease of [place] coronary artery with other forms of angina pectoris (2) Angina pectoris Current Visit: Yes Status: Acute The assessment and plan as outlined above was discussed with the patient and/or family members who expressed understanding and agreement. All questions were answered. - Subjective Interval history: The patient has no complaints. Vital Signs, Last 4 Hours Temp Pulse Resp BP Pulse Ox 11/05/16 07:48 98.4 F 11/05/16 07:45 14 93 11/05/16 06:00 94 14 114/56 93 11/05/16 05:00 96 12 112/59 94 11/05/16 04:30 98.9 F Oxgyen Flow Rate Oxygen Flow Rate (LPM) 2 Weight 11/03/16 11/04/16 11/05/16 23:59 23:59 23:59 Weight 70.8 kg Lungs are clear to percussion and auscultation. Heart is in a normal sinus rhythm. All incisions are healing well without signs of infection and the sternum is stable. Chest x-ray done after chest tube removal revealed no pneumothorax - Labs 11/05/16 05:10 11/05/16 05:10 Lab Results, Last 24 hours 11/05/16 11/05/16 05:10 05:10 WBC 8.4 Hgb 9.1 L Hct 28.4 L Plt Count 71 L Sodium 139 Potassium 4.3 Chloride 105 Carbon Dioxide 30 H BUN 21 H Creatinine 0.85 Glucose 120 H Calcium 8.9 - VTE Documentation of Mechanical Device: Graduated compression elastic hosiery Consult Discharge Plan - Plan Referrals: Addy,Antonieta Arteaga CHIPPER FEEDER [Primary Care Provider] - ()
[2016-11-05] MEDS: Nitroglycerin 25 MG/250 ML INFUS..BTL IVC SCH (08:45)
[2016-11-05] MEDS: Furosemide 20 MG/2 ML VIAL IVP SCH ×2 (08:51→16:18)
[2016-11-05] MEDS: Pantoprazole 40 MG VIAL IVP SCH (08:51)
[2016-11-05] MEDS: *HR* HYDROcodone/Acet 5/325 mg TABLET PO PRN (08:52)
[2016-11-05] MEDS: Aspirin Enteric Coated 81 MG Tablet PO SCH (08:52)
[2016-11-05] MEDS: Chlorhexidine Rinse 15 ML MOUTHWASH MM SCH ×2 (08:52→20:42)
[2016-11-05] MEDS: Insulin LISPRO 300 UNITS/3 ML VIAL SQ SCH ×4 (10:25→20:42)
[2016-11-05] MEDS: Cholecalciferol (D-3) 1,000 UNIT TABLET PO SCH (10:27)
[2016-11-05] MEDS: Insulin Human Regular 100 UNIT in 0.9 % Sodium Chloride 100 ML IVC SCH (13:01)
[2016-11-05] MEDS: Norepinephrine 4 MG in D5% in Water 250 ML IVC SCH (13:02)
[2016-11-05] MEDS ORDERED: Amiodarone Premix 360 MG/200 ML BAG IVC ONE (20:12)
[2016-11-05] MEDS ORDERED: Amiodarone Premix 150 MG/100 ML BAG IVPB ONE (20:12)
[2016-11-05] MEDS ORDERED: Amiodarone Premix 360 MG/200 ML BAG IVC SCH (20:15)
[2016-11-05] MEDS: Acetaminophen 325 MG TABLET PO PRN (23:57)
[2016-11-06] MEDS: niCARdipine 40 MG/200 ML MLS IVC SCH ×2 (00:15→04:45)
[2016-11-06] MEDS: Nitroglycerin 25 MG/250 ML INFUS..BTL IVC SCH (03:03)
[2016-11-06 04:51] LABS: Basophils % 0.1 %; Eosinophils # 0.1 K/mcL (0.0-0.6); Eosinophils % 1.5 %; Hematocrit 29.8 % (35.3-44.9); Hemoglobin 9.6 g/dL (11.5-15.4); Immature Granulocytes % 0.4 % (0-4); Lymphocytes # 1.4 K/mcL (0.6-4.6); Mean Corpuscular HGB Conc 32.2 g/dL (31.6-35.5); Mean Corpuscular Hemoglobin 30.4 pg (28.0-33.3); Mean Corpuscular Volume 94.3 fL (83.0-100.0); Monocytes # 1.1 K/mcL (0.0-1.3); Monocytes % 12.9 %; Neutrophils # 5.9 K/mcL (1.6-8.9); Platelet Count 103 K/mcL (140-400); Red Blood Count 3.16 M/mcL (3.82-4.97); Red Cell Distribution Width 14.7 % (11.5-14.5); Segmented Neutrophils % 69.1 %
[2016-11-06 04:58] LABS: BUN/Creatinine Ratio 22 (6-26); Blood Urea Nitrogen 20 mg/dL (7-20); Calcium 8.8 mg/dL (8.6-10.8); Carbon Dioxide 28 mEq/L (19-29); Chloride 103 mEq/L (98-109); Glucose 138 mg/dL (70-99); Osmolality,Calculated 293 (280-300); Sodium 139 mEq/L (136-145); eGFR For African Americans > 60 (> 60); eGFR For Non-African Americans 58 (> 60)
[2016-11-06] MEDS: Pantoprazole 40 MG VIAL IVP SCH (07:46)
[2016-11-06] MEDS: Cholecalciferol (D-3) 1,000 UNIT TABLET PO SCH (07:46)
[2016-11-06] MEDS: Aspirin Enteric Coated 81 MG Tablet PO SCH (07:46)
[2016-11-06] MEDS: Chlorhexidine Rinse 15 ML MOUTHWASH MM SCH ×2 (07:46→20:37)
[2016-11-06] MEDS: Insulin LISPRO 300 UNITS/3 ML VIAL SQ SCH ×4 (07:48→20:41)
--- NOTE | 2016-11-06 08:39 | Cardiothoracic Progress Note ---
Date of Encounter: 11/06/16 Time of Encounter: 08:37 - Assessment and plan (1) Coronary artery disease Current Visit: Yes Status: Acute We will transfer the patient to the floor. We will leave her on the amiodarone drip until tomorrow morning. We will recheck a chest x-ray tomorrow morning. Qualifiers: Coronary Disease-Associated Artery/Lesion type: [place] artery [place] vs. transplanted heart: [place] heart Associated angina: with stable angina Qualified Code(s): I25.118 - Atherosclerotic heart disease of [place] coronary artery with other forms of angina pectoris (2) Angina pectoris Current Visit: Yes Status: Acute The assessment and plan as outlined above was discussed with the patient and/or family members who expressed understanding and agreement. All questions were answered. - Subjective Interval history: The patient has no complaints. She went into atrial fibrillation last night, but was converted to normal sinus rhythm on an amiodarone drip. Vital Signs, Last 4 Hours Temp Pulse Resp BP Pulse Ox 11/06/16 08:00 97.9 F 82 20 129/58 95 11/06/16 07:43 16 95 11/06/16 07:00 76 14 124/57 96 11/06/16 06:00 71 16 120/55 96 11/06/16 05:00 75 16 129/57 97 Oxgyen Flow Rate Oxygen Flow Rate (LPM) 2 Clinical Data, last 8 Hours Output, Urine Amount 150 Weight 11/04/16 11/05/16 11/06/16 23:59 23:59 23:59 Weight 70.8 kg 70.896 kg Lungs are clear to percussion and auscultation. Heart is in a normal sinus rhythm. All incisions are healing well without signs of infection and the sternum is stable. Chest x-ray reveals bilateral pleural effusions. - Labs 11/06/16 04:40 11/06/16 04:40 Lab Results, Last 24 hours 11/06/16 11/06/16 04:40 04:40 WBC 8.5 Hgb 9.6 L Hct 29.8 L Plt Count 103 L Sodium 139 Potassium 4.0 Chloride 103 Carbon Dioxide 28 BUN 20 Creatinine 0.93 Glucose 138 H Calcium 8.8 - VTE Documentation of Mechanical Device: Graduated compression elastic hosiery Consult Discharge Plan - Plan Referrals: Antonieta Daly CNP [Primary Care Provider] - ()
[2016-11-06] MEDS ORDERED: Furosemide 20 MG/2 ML VIAL IVP SCH (09:00)
[2016-11-06] MEDS ORDERED: *HR* Morphine 2 MG/ML SYRINGE IVP PRN (11:14)
[2016-11-06] MEDS ORDERED: D5% in Water 1,000 ML IVC PRN (11:14)
[2016-11-06] MEDS ORDERED: *HR* HYDROcodone/Acet 5/325 mg TABLET PO PRN (11:14)
[2016-11-06] MEDS ORDERED: Dextrose Gel 15 GM PO PRN ×2 (11:14)
[2016-11-06] MEDS ORDERED: Nitroglycerin 0.4 MG TAB.SUBL SL PRN (11:14)
[2016-11-06] MEDS ORDERED: *HR* Dextrose 50 % in Water (Syg) 50 ML SYRINGE IVP PRN (11:14)
[2016-11-06] MEDS ORDERED: Insulin Regular, Human 100 UNIT/ML IV PRN (11:14)
[2016-11-06] MEDS: Amiodarone Premix 360 MG/200 ML BAG IVC SCH ×2 (11:32→23:33)
--- NOTE | 2016-11-06 18:09 | Electrocardiograph Report ---
[address] [address] Test Date: 2016-11-05 Pat Name: Dolores Lundy Department: 109 Room: 09 Gender: F Whey Department Operator: : 1940 Requested By: Apurva Cullen Order Number: [id number] Reading MD: Damon Clay MD Measurements Intervals [place] Rate: 137 P: ND: 0 QRS: 39 QRSD: 77 T: 42 QT: 346 QTc: 426 Interpretive Statements SINUS TACHYCARDIA WITH PACS Electronically Signed On 11-06-2016 18:07:56 EDT by Damon Clay MD
--- NOTE | 2016-11-06 18:10 | Electrocardiograph Report ---
[place] [address] Test Date: 2016-11-05 Pat Name: Dolores Lundy Department: 109 Room: 09 Gender: F Diamond Assorter: : 1940 Requested By: Flavio Soler Order Number: [id number] Reading MD: Damon Clay MD Measurements Intervals [place] Rate: 129 P: 50 UT: 147 QRS: 39 QRSD: 80 T: 51 QT: 337 QTc: 413 Interpretive Statements SINUS TACHYCARDIA WITH FREQUENT SUPRAVENTRICULAR PREMATURE COMPLEXES Electronically Signed On 11-06-2016 18:09:06 EDT by Damon Clay MD
[2016-11-06] MEDS: *HR* Heparin 5,000 UNIT/ML VIAL SQ SCH (18:28)
[2016-11-06] MEDS: Furosemide 20 MG/2 ML VIAL IVP SCH (20:37)
[2016-11-06] MEDS: *HR* OxyCODONE/APAP 5/325 TABLET PO PRN (20:39)
[2016-11-06] MEDS: Ondansetron 4 MG/2 ML VIAL IVP PRN (23:37)
[2016-11-07 01:42] LABS: Basophils % 0.2 %; Eosinophils # 0.2 K/mcL (0.0-0.6); Eosinophils % 2.6 %; Hematocrit 29.3 % (35.3-44.9); Hemoglobin 9.4 g/dL (11.5-15.4); Immature Granulocytes % 0.5 % (0-4); Immature Platelets 6.8 % (1.1-6.1); Lymphocytes % 11.3 %; Mean Corpuscular HGB Conc 32.1 g/dL (31.6-35.5); Mean Corpuscular Hemoglobin 30.1 pg (28.0-33.3); Mean Corpuscular Volume 93.9 fL (83.0-100.0); Monocytes # 1.2 K/mcL (0.0-1.3); Neutrophils # 6.1 K/mcL (1.6-8.9); Nucleated Red Blood Cells 0.2 /100 WBC (0); Platelet Count 129 K/mcL (140-400); Red Blood Count 3.12 M/mcL (3.82-4.97); Red Cell Distribution Width 14.6 % (11.5-14.5); Segmented Neutrophils % 71.4 %
[2016-11-07 01:53] LABS: BUN/Creatinine Ratio 19 (6-26); Blood Urea Nitrogen 18 mg/dL (7-20); Carbon Dioxide 29 mEq/L (19-29); Chloride 103 mEq/L (98-109); Glucose 91 mg/dL (70-99); Osmolality,Calculated 291 (280-300); Potassium 3.6 mEq/L (3.5-4.5); Sodium 140 mEq/L (136-145); eGFR For African Americans > 60 (> 60); eGFR For Non-African Americans 57 (> 60)
[2016-11-07] MEDS: Ondansetron 4 MG/2 ML VIAL IVP PRN ×2 (05:08→22:15)
[2016-11-07] MEDS: *HR* Heparin 5,000 UNIT/ML VIAL SQ SCH ×2 (05:08→17:02)
[2016-11-07] MEDS: Insulin LISPRO 300 UNITS/3 ML VIAL SQ SCH ×4 (07:48→21:04)
--- NOTE | 2016-11-07 08:28 | Cardiothoracic Progress Note ---
Date of Encounter: 11/07/16 Time of Encounter: 08:26 - Assessment and plan (1) Coronary artery disease Current Visit: Yes Status: Acute The patient is recovering well from her CABG3. Most recent chest x-ray shows bilateral pleural effusions with the left side greater than the right. She will undergo a left thoracentesis in interventional radiology today. The assessment and plan as outlined above was discussed with the patient and/or family members who expressed understanding and agreement. All questions were answered. Qualifiers: Coronary Disease-Associated Artery/Lesion type: [place] artery [place] vs. transplanted heart: [place] heart Associated angina: with stable angina Qualified Code(s): I25.118 - Atherosclerotic heart disease of [place] coronary artery with other forms of angina pectoris - Subjective Procedure(s) Performed: POD#5 S/P CABG3 Interval history: The patient remained hemodynamically stable overnight. She is sitting in a chair eating breakfast. She had some nausea last night; however, this has resolved. Vital Signs, Last 4 Hours Temp Pulse Resp BP Pulse Ox 11/07/16 08:03 18 97 11/07/16 08:00 98.2 F 64 16 127/59 96 11/07/16 04:58 98.5 F 63 16 127/65 989 11/07/16 04:38 16 97 11/07/16 04:30 63 Oxgyen Flow Rate Oxygen Flow Rate (LPM) 2 Clinical Data, last 8 Hours Output, Urine Amount 75 Weight 11/05/16 11/06/16 11/07/16 23:59 23:59 23:59 Weight 70.8 kg 70.896 kg 65 kg - Physical Examination General: Conversant, No Apparent Distress Neck: No JVD, Normal carotid pulses Cardiac: Reg Rate and Rhythm, Normal S1 and S2, No Murmur Incision: No signs of infection, Dry/intact dressing Sternum: Stable Lungs: Normal Breath Sounds (Right lung hwang.), Decreased breath sounds (Left base.) Neuro: Alert and responsive, No focal deficits noted Vascular: Normal capillary refill Musculoskeletal: No Chest Wall Tenderness Extremities: No Clubbing, No Cyanosis, No Edema - Labs 11/07/16 01:34 11/07/16 01:34 Lab Results, Last 24 hours 11/07/16 11/07/16 01:34 01:34 WBC 8.5 Hgb 9.4 L Hct 29.3 L Plt Count 129 L Sodium 140 Potassium 3.6 Chloride 103 Carbon Dioxide 29 BUN 18 Creatinine 0.95 Glucose 91 Calcium 9.0 - VTE Documentation of Mechanical Device: Graduated compression elastic hosiery Consult Discharge Plan - Plan Referrals: Antonieta Daly, WEB SITE PROJECT MANAGER [Primary Care Provider] - ()
[2016-11-07] MEDS: Chlorhexidine Rinse 15 ML MOUTHWASH MM SCH ×2 (09:44→20:30)
[2016-11-07] MEDS: Aspirin Enteric Coated 81 MG Tablet PO SCH (09:45)
[2016-11-07] MEDS: Cholecalciferol (D-3) 1,000 UNIT TABLET PO SCH (09:45)
[2016-11-07] MEDS: Furosemide 20 MG/2 ML VIAL IVP SCH ×2 (09:45→20:30)
[2016-11-07] MEDS: Pantoprazole 40 MG VIAL IVP SCH (09:45)
--- NOTE | 2016-11-07 10:45 | IR Procedure Note ---
Date of procedure: 11/07/16 Consent Obtained: Verbal consent Timeout: Correct patient and procedure verified, Correct site verified, Time out performed, Skin prep completed Local anesthetic: Lidocaine 1% Indications: Right pleural effusion Procedure Performed: Right thoracentesis Complications: None; Tolerated procedure well (Monitor on floor)
[2016-11-07] MEDS: *HR* OxyCODONE/APAP 5/325 TABLET PO PRN ×2 (13:24→20:29)
[2016-11-07] MEDS: Amiodarone Premix 360 MG/200 ML BAG IVC SCH (13:25)
[2016-11-07] MEDS ORDERED: Ondansetron 4 MG/2 ML VIAL IVP ONE (23:40)
[2016-11-08] MEDS: *HR* Heparin 5,000 UNIT/ML VIAL SQ SCH ×2 (05:17→18:08)
[2016-11-08] MEDS: Insulin LISPRO 300 UNITS/3 ML VIAL SQ SCH ×4 (08:24→21:55)
[2016-11-08] MEDS: Cholecalciferol (D-3) 1,000 UNIT TABLET PO SCH (08:35)
[2016-11-08] MEDS: Furosemide 20 MG/2 ML VIAL IVP SCH ×2 (08:35→21:51)
[2016-11-08] MEDS: Chlorhexidine Rinse 15 ML MOUTHWASH MM SCH ×2 (08:35→21:50)
[2016-11-08] MEDS: Pantoprazole 40 MG VIAL IVP SCH (08:35)
[2016-11-08] MEDS: Aspirin Enteric Coated 81 MG Tablet PO SCH (08:36)
--- NOTE | 2016-11-08 08:37 | Cardiothoracic Progress Note ---
Date of Encounter: 11/08/16 Time of Encounter: 08:35 - Assessment and plan (1) Coronary artery disease Current Visit: Yes Status: Acute We will place her on by mouth amiodarone. We will order Maalox when necessary. Hopefully, she can go to an extended care facility in 1-2 days. Qualifiers: Coronary Disease-Associated Artery/Lesion type: [place] artery [place] vs. transplanted heart: [place] heart Associated angina: with stable angina Qualified Code(s): I25.118 - Atherosclerotic heart disease of [place] coronary artery with other forms of angina pectoris (2) Angina pectoris Current Visit: Yes Status: Acute The assessment and plan as outlined above was discussed with the patient and/or family members who expressed understanding and agreement. All questions were answered. - Subjective Interval history: The patient had some nausea last night, but feels better this morning. Vital Signs, Last 4 Hours Temp Pulse Resp BP Pulse Ox 11/08/16 07:51 98.5 F 63 18 119/57 95 11/08/16 05:15 57 Oxgyen Flow Rate Oxygen Flow Rate (LPM) 2 Clinical Data, last 8 Hours Output, Urine Amount 200 Weight 11/06/16 11/07/16 11/08/16 23:59 23:59 23:59 Weight 70.896 kg 65 kg 65 kg Lungs are clear to percussion and auscultation. Heart is in a normal sinus rhythm. All incisions are healing well without signs of infection and the sternum is stable. Chest x-ray is improved after yesterday's thoracentesis. - Labs 11/07/16 01:34 11/07/16 01:34 - VTE Documentation of Mechanical Device: Graduated compression elastic hosiery Consult Discharge Plan - Plan Referrals: Antonieta Daly CNP [Primary Care Provider] - ()
[2016-11-08] MEDS ORDERED: Mag Hydrox/Al Hydrox/Simeth 30 ML UDC PO PRN (08:39)
[2016-11-08] MEDS: *HR* Amiodarone 200 MG TABLET PO SCH (10:11)
[2016-11-08] MEDS: Acetaminophen 325 MG TABLET PO PRN (11:39)
[2016-11-09] MEDS: *HR* Heparin 5,000 UNIT/ML VIAL SQ SCH ×2 (05:03→17:59)
[2016-11-09 05:17] LABS: Basophils % 0.5 %; Eosinophils # 0.7 K/mcL (0.0-0.6); Eosinophils % 9.2 %; Hemoglobin 9.4 g/dL (11.5-15.4); Immature Granulocytes % 1.2 % (0-4); Lymphocytes # 1.2 K/mcL (0.6-4.6); Lymphocytes % 16.1 %; Mean Corpuscular HGB Conc 32.4 g/dL (31.6-35.5); Mean Corpuscular Hemoglobin 29.8 pg (28.0-33.3); Mean Corpuscular Volume 92.1 fL (83.0-100.0); Mean Platelet Volume 10.9 fL (9.4-12.4); Monocytes % 13.4 %; Neutrophils # 4.5 K/mcL (1.6-8.9); Nucleated Red Blood Cells 3.2 /100 WBC (0); Platelet Count 219 K/mcL (140-400); Red Blood Count 3.15 M/mcL (3.82-4.97); Red Cell Distribution Width 14.3 % (11.5-14.5); Segmented Neutrophils % 59.6 %
[2016-11-09 05:44] LABS: BUN/Creatinine Ratio 23 (6-26); Blood Urea Nitrogen 21 mg/dL (7-20); Calcium 8.9 mg/dL (8.6-10.8); Carbon Dioxide 34 mEq/L (19-29); Chloride 98 mEq/L (98-109); Glucose 100 mg/dL (70-99); Osmolality,Calculated 291 (280-300); Sodium 139 mEq/L (136-145); eGFR For African Americans > 60 (> 60); eGFR For Non-African Americans > 60 (> 60)
--- NOTE | 2016-11-09 07:32 | Cardiothoracic Progress Note ---
Date of Encounter: 11/09/16 Time of Encounter: 07:31 - Assessment and plan (1) Coronary artery disease Current Visit: Yes Status: Acute The pacing wires were removed in anticipation of discharge. I will discontinue the Lasix and start by mouth potassium. Hopefully, the patient can go to an extended care facility in 1-2 days. Qualifiers: Coronary Disease-Associated Artery/Lesion type: [place] artery [place] vs. transplanted heart: [place] heart Associated angina: with stable angina Qualified Code(s): I25.118 - Atherosclerotic heart disease of [place] coronary artery with other forms of angina pectoris (2) Angina pectoris Current Visit: Yes Status: Acute The assessment and plan as outlined above was discussed with the patient and/or family members who expressed understanding and agreement. All questions were answered. - Subjective Interval history: The patient complains of occasional heartburn. Vital Signs, Last 4 Hours Temp Pulse Resp BP Pulse Ox 11/09/16 04:35 98.1 F 60 18 108/54 97 Oxgyen Flow Rate Oxygen Flow Rate (LPM) 2 Weight 11/07/16 11/08/16 11/09/16 23:59 23:59 23:59 Weight 65 kg 65 kg 64 kg Lungs are clear to percussion and auscultation. Heart is in a normal sinus rhythm. All incisions are healing well without signs of infection and the sternum is stable. - Labs 11/09/16 04:55 11/09/16 04:55 Lab Results, Last 24 hours 11/09/16 11/09/16 04:55 04:55 WBC 7.6 Hgb 9.4 L Hct 29.0 L Plt Count 219 D Sodium 139 Potassium 3.0 L Chloride 98 Carbon Dioxide 34 H BUN 21 H Creatinine 0.90 Glucose 100 H Calcium 8.9 - VTE Documentation of Mechanical Device: Graduated compression elastic hosiery Consult Discharge Plan - Plan Referrals: Antonieta Daly CNP [Primary Care Provider] - ()
[2016-11-09] MEDS: Aspirin Enteric Coated 81 MG Tablet PO SCH (08:06)
[2016-11-09] MEDS: Chlorhexidine Rinse 15 ML MOUTHWASH MM SCH ×2 (08:07→20:06)
[2016-11-09] MEDS: Pantoprazole 40 MG VIAL IVP SCH (08:07)
[2016-11-09] MEDS: Cholecalciferol (D-3) 1,000 UNIT TABLET PO SCH (08:07)
[2016-11-09] MEDS: *HR* Amiodarone 200 MG TABLET PO SCH (08:08)
[2016-11-09] MEDS: Insulin LISPRO 300 UNITS/3 ML VIAL SQ SCH ×4 (08:25→21:29)
[2016-11-09] MEDS: Acetaminophen 325 MG TABLET PO PRN (20:07)
[2016-11-10 04:54] LABS: Basophils % 0.4 %; Eosinophils # 0.7 K/mcL (0.0-0.6); Hematocrit 30.1 % (35.3-44.9); Hemoglobin 9.5 g/dL (11.5-15.4); Immature Granulocytes % 0.8 % (0-4); Lymphocytes # 1.6 K/mcL (0.6-4.6); Lymphocytes % 18.5 %; Mean Corpuscular HGB Conc 31.6 g/dL (31.6-35.5); Mean Corpuscular Hemoglobin 29.4 pg (28.0-33.3); Mean Corpuscular Volume 93.2 fL (83.0-100.0); Mean Platelet Volume 11.7 fL (9.4-12.4); Monocytes % 12.1 %; Neutrophils # 5.1 K/mcL (1.6-8.9); Nucleated Red Blood Cells 0.5 /100 WBC (0); Platelet Count 241 K/mcL (140-400); Red Blood Count 3.23 M/mcL (3.82-4.97); Red Cell Distribution Width 14.2 % (11.5-14.5); Segmented Neutrophils % 60.2 %
[2016-11-10 05:06] LABS: BUN/Creatinine Ratio 21 (6-26); Blood Urea Nitrogen 19 mg/dL (7-20); Calcium 9.5 mg/dL (8.6-10.8); Carbon Dioxide 32 mEq/L (19-29); Chloride 100 mEq/L (98-109); Glucose 114 mg/dL (70-99); Osmolality,Calculated 293 (280-300); Potassium 3.6 mEq/L (3.5-4.5); Sodium 140 mEq/L (136-145); eGFR For African Americans > 60 (> 60); eGFR For Non-African Americans 60 (> 60)
[2016-11-10] MEDS: *HR* Heparin 5,000 UNIT/ML VIAL SQ SCH ×2 (05:15→18:09)
[2016-11-10] MEDS: Insulin LISPRO 300 UNITS/3 ML VIAL SQ SCH ×3 (08:16→18:06)
[2016-11-10] MEDS: Cholecalciferol (D-3) 1,000 UNIT TABLET PO SCH (08:21)
[2016-11-10] MEDS: *HR* Amiodarone 200 MG TABLET PO SCH (08:21)
[2016-11-10] MEDS: Aspirin Enteric Coated 81 MG Tablet PO SCH (08:22)
[2016-11-10] MEDS: Pantoprazole 40 MG VIAL IVP SCH (08:22)
[2016-11-10] MEDS: Chlorhexidine Rinse 15 ML MOUTHWASH MM SCH ×2 (08:22→20:22)
[2016-11-10] MEDS: Acetaminophen 325 MG TABLET PO PRN ×2 (09:21→20:21)
--- NOTE | 2016-11-10 09:24 | Cardiothoracic Progress Note ---
Date of Encounter: 11/10/16 Time of Encounter: 09:22 - Assessment and plan (1) Coronary artery disease Current Visit: Yes Status: Acute The patient has received Tylenol for headache. I will stop her by mouth potassium as her serum potassium is 3.6. The plan is for her to be discharged to an extended care facility tomorrow. Qualifiers: Coronary Disease-Associated Artery/Lesion type: [place] artery [place] vs. transplanted heart: [place] heart Associated angina: with stable angina Qualified Code(s): I25.118 - Atherosclerotic heart disease of [place] coronary artery with other forms of angina pectoris (2) Angina pectoris Current Visit: Yes Status: Acute The assessment and plan as outlined above was discussed with the patient and/or family members who expressed understanding and agreement. All questions were answered. - Subjective Interval history: The patient complains of mild headache this morning. Vital Signs, Last 4 Hours Temp Pulse Resp BP Pulse Ox 11/10/16 07:01 98.2 F 74 18 113/53 93 Oxgyen Flow Rate Oxygen Flow Rate (LPM) 1 Weight 11/08/16 11/09/16 11/10/16 23:59 23:59 23:59 Weight 65 kg 64 kg 64.3 kg Lungs are clear to percussion and auscultation. Heart is in a normal sinus rhythm. All incisions are healing well without signs of infection and the sternum is stable. Chest x-ray looks improved to me. - Labs 11/10/16 01:25 11/10/16 00:50 Lab Results, Last 24 hours 11/10/16 11/10/16 00:50 01:25 WBC 8.5 Hgb 9.5 L Hct 30.1 L Plt Count 241 Sodium 140 Potassium 3.6 Chloride 100 Carbon Dioxide 32 H BUN 19 Creatinine 0.91 Glucose 114 H Calcium 9.5 - VTE Documentation of Mechanical Device: Graduated compression elastic hosiery Consult Discharge Plan - Plan Referrals: Antonieta Daly CNP [Primary Care Provider] - ()
[2016-11-11 04:51] LABS: Basophils % 0.5 %; Eosinophils # 0.7 K/mcL (0.0-0.6); Eosinophils % 9.1 %; Hematocrit 29.1 % (35.3-44.9); Hemoglobin 9.5 g/dL (11.5-15.4); Lymphocytes # 1.5 K/mcL (0.6-4.6); Lymphocytes % 19.6 %; Mean Corpuscular HGB Conc 32.6 g/dL (31.6-35.5); Mean Corpuscular Hemoglobin 30.4 pg (28.0-33.3); Mean Platelet Volume 10.6 fL (9.4-12.4); Monocytes # 0.9 K/mcL (0.0-1.3); Monocytes % 11.5 %; Neutrophils # 4.5 K/mcL (1.6-8.9); Platelet Count 256 K/mcL (140-400); Red Blood Count 3.13 M/mcL (3.82-4.97); Red Cell Distribution Width 14.4 % (11.5-14.5); Segmented Neutrophils % 58.3 %
[2016-11-11 05:05] LABS: BUN/Creatinine Ratio 16 (6-26); Blood Urea Nitrogen 13 mg/dL (7-20); Calcium 9.3 mg/dL (8.6-10.8); Carbon Dioxide 29 mEq/L (19-29); Chloride 102 mEq/L (98-109); Glucose 108 mg/dL (70-99); Osmolality,Calculated 291 (280-300); Potassium 3.7 mEq/L (3.5-4.5); Sodium 140 mEq/L (136-145); eGFR For African Americans > 60 (> 60); eGFR For Non-African Americans > 60 (> 60)
[2016-11-11] MEDS: Insulin LISPRO 300 UNITS/3 ML VIAL SQ SCH ×2 (06:22→07:50)
[2016-11-11] MEDS: *HR* Heparin 5,000 UNIT/ML VIAL SQ SCH (06:23)
[2016-11-11 07:19] VITALS: BP 136/70
[2016-11-11] MEDS: Chlorhexidine Rinse 15 ML MOUTHWASH MM SCH (08:51)
[2016-11-11] MEDS: Pantoprazole 40 MG VIAL IVP SCH (08:51)
[2016-11-11] MEDS: Cholecalciferol (D-3) 1,000 UNIT TABLET PO SCH (08:51)
[2016-11-11] MEDS: Aspirin Enteric Coated 81 MG Tablet PO SCH (08:52)
[2016-11-11] MEDS: *HR* Amiodarone 200 MG TABLET PO SCH (08:52)
[2016-11-11] MEDS: Acetaminophen 325 MG TABLET PO PRN (08:58)
[2016-11-11] MEDS ORDERED: MOM Conc 10 ML UD.LIQ PO ONE (09:56)
--- NOTE | 2016-11-11 10:08 | Discharge Summary ---
Date of Encounter: 11/11/16 Time of Encounter: 10:04 - Discharge Diagnosis (1) Coronary artery disease Priority: Primary Status: Acute Qualifiers: Coronary Disease-Associated Artery/Lesion type: [place] artery [place] vs. transplanted heart: [place] heart Associated angina: with stable angina Qualified Code(s): I25.118 - Atherosclerotic heart disease of [place] coronary artery with other forms of angina pectoris - Discharge Medications Prescriptions: HYDROcodone/Acet 5/325 mg [[place] 5-325 mg] 1 tab PO Q4HR PRN #30 tab PRN Reason: Moderate Pain Amiodarone [Cordarone] 200 mg PO DAILY #30 tab Home Medications: Amlodipine Besylate 2.5 mg PO DAILY 10/31/16 [History] Aspirin [Lo-Dose Aspirin EC] 81 mg PO DAILY 10/31/16 [History] Atenolol [Tenormin] 12.5 mg PO HS 10/31/16 [History] Calcium Carbonate [Calcium] 500 mg PO DAILY 10/31/16 [History] Cholecalciferol (Vitamin D3) [Vitamin D3] 2,000 unit PO DAILY 10/31/16 [History] Pravastatin Sodium [Pravachol] 40 mg PO DAILY 10/31/16 [History] Amiodarone [Cordarone] 200 mg PO DAILY #30 tab 11/11/16 [Rx] HYDROcodone/Acet 5/325 mg [[place] 5-325 mg] 1 tab PO Q4HR PRN #30 tab 11/11/16 [ Rx] Allergies/Adverse Reactions: 3 Allergy/AdvReac Type Severity Reaction Status Date / Time No Known Allergies Allergy Verified 10/31/16 13:36 Date of admission: 10/31/16 11:13 Primary care physician: Antonieta Daly CNP Consults: 10/31/16 09:14 Consult to Cardiothoracic Surgery [CONS] Routine Consulting Provider: Cardiothoracic Surgery Jessica Reason for Consult: urgent CABG Call Completed: Yes 11/02/16 11:20 Consult to Cardiac Rehabilitation-Phase1 [CONS] Routine Comment: Reason for Consult: Post open heart Call Completed: Yes 11/04/16 19:32 Consult to Occupational Therapy [CONS] Routine Comment: Evaluate, develop and implement POC Reason for Consult: strengthening and discharge planning Consult to Physical Therapy [CONS] Routine Comment: Evaluate, develop and implement POC Reason for Consult: strengthening and discharge planning Consult to Filament Maker [CONS] Routine Reason for SW Consult: discharge planning 11/06/16 11:14 Consult for Pharmacy Education [CONS] Routine Reason for Consult: Post-Op Heart Call Completed: Yes Consult to Occupational Therapy [CONS] Routine Comment: Evaluate, develop and implement POC Reason for Consult: Post-Op Heart Consult to Physical Therapy [CONS] Routine Comment: Evaluate, develop and implement POC Reason for Consult: Post open heart 11/07/16 08:29 Consult to Interventional Radiology [CONS] Routine Consulting Provider: Radiology Interventional Cols Reason for Consult: Left thoracentesis for moderate left pleural effusion. Call Completed: No Procedure(s) Performed: 1. Cardiac catheterization performed October 31, 2016. 2. CABG 3 (CONN to LAD, sequential SVG to ramus intermediate branch then OM1) performed November 02, 2016. 3. Endoscopic vein harvesting, greater saphenous vein from right lower extremity performed November 02, 2016. Discharging clinician: Apurva Cullen Anticipated date of discharge: 11/11/16 - Patient Status Disposition: Transfer Inpatient Rehab Fac Condition: Good Functional capacity at discharge: independent ambulation Overall status at discharge: patient is progressing back to baseline - Discharge Instructions Follow Up With: Damon Clay MD [Partnered Physician] - 12/08/16 9:00 am Apurva Cullen MD [Partnered Physician] - 12/08/16 1:20 pm Antonieta Daly CNP [Primary Care Provider] - (PATIENT IS GOING TO [facility], NO PCP APPOINTMENT IS NEEDED) - Diet and Activity Activity: sternal precautions, no driving for four weeks, no lifting greater than 10 pounds for eight weeks Diet: low fat, low cholesterol - Hospital Course Hospital course: Ms. Lundy is a 76 year old hypertensive lady with hypercholesterolemia who has had intermittent, exertional, nonradiating substernal chest pain and pressure for approximately 2 years. The symptoms have become progressively more frequent and severe. She underwent a nuclear stress test which revealed an LVEF 73% with ischemia in the anterior, anteroseptal, and apical mares. Subsequent cardiac catheterization revealed severe 3 vessel CAD. In particular patient had a 60-80 % distal left main lesion, a 99% proximal LAD lesion, a 60-80% proximal ramus intermediate branch lesion, and an 80% proximal LCx lesion. The patient has recommended for CABG. The patient underwent CABG 4 on November 02, 2016. Her postoperative course was uncomplicated. She did develop transient paroxysmal atrial fibrillation which converted to normal sinus rhythm with amiodarone. The patient was discharged to an extended care facility as a bridge to home on POD#9. - Time Spent with Patient Total time spent providing and/or coordinating discharge services: Physical Examination Vital Signs, Last 4 Hours Temp Pulse Resp BP Pulse Ox 11/11/16 08:00 70 11/11/16 07:13 98.2 F 71 16 136/70 94 General: Conversant, No Apparent Distress Neck: No JVD, Normal carotid pulses Cardiac: Reg Rate and Rhythm, Normal S1 and S2, No Murmur Lungs: Normal Breath Sounds, No Wheeze, Rales, Rhonchi Neuro: Alert and responsive, No focal deficits noted Vascular: Normal capillary refill Extremities: No Clubbing, No Cyanosis, No Edema Open Heart Registry Aspirin Cont/Prescribed at DC: Yes Beta Santos Cont/Prescribed at DC: Yes Statin Cont/Prescribed at DC: Yes NEELIMA/ARB Cont/Prescribed at DC: Not indicated (LVEF greater than 50%.) - VTE Documentation of Mechanical Device: Graduated compression elastic hosiery
--- NOTE | 2016-11-11 10:14 | Physician Discharge Referral ---
ExtendedCare Referral Info Transfer To: [facility] Provider in Charge: Cullen Provider in Charge after Transfer: PCP Institutional Level of Care: Skilled - Diagnosis (1) Coronary artery disease Priority: Primary Status: Acute Prognosis: Good Aware of Diagnosis: Patient Aware of Prognosis: Patient - Transfer Medications Prescriptions: HYDROcodone/Acet 5/325 mg [[place] 5-325 mg] 1 tab PO Q4HR PRN #30 tab PRN Reason: Moderate Pain Amiodarone [Cordarone] 200 mg PO DAILY #30 tab Home Medications: Amlodipine Besylate 2.5 mg PO DAILY 10/31/16 [History] Aspirin [Lo-Dose Aspirin EC] 81 mg PO DAILY 10/31/16 [History] Atenolol [Tenormin] 12.5 mg PO HS 10/31/16 [History] Calcium Carbonate [Calcium] 500 mg PO DAILY 10/31/16 [History] Cholecalciferol (Vitamin D3) [Vitamin D3] 2,000 unit PO DAILY 10/31/16 [History] Pravastatin Sodium [Pravachol] 40 mg PO DAILY 10/31/16 [History] Amiodarone [Cordarone] 200 mg PO DAILY #30 tab 11/11/16 [Rx] HYDROcodone/Acet 5/325 mg [[place] 5-325 mg] 1 tab PO Q4HR PRN #30 tab 11/11/16 [ Rx] Allergies/Adverse Reactions: 3 Allergy/AdvReac Type Severity Reaction Status Date / Time No Known Allergies Allergy Verified 10/31/16 13:36 - Respiratory Orders Smoking Cessation: Smoking cessation has been advised. For more information, call the [place] Tobacco Quit Line at 4-824-EEZW-NOW. - Ancillary Orders May use pressure relief devices daily prn, May go on ZORAIDA w/family/respon republican w /meds at nurse discretion PRN, May have alcoholic beverages, May consult with Dentist, Hspt Tutor, [place]ota PRN - Advance Directives Code Status: Full Code - Mobility Orders Ambulate - Rehabiliation Orders Rehab Potential: Good Rehab Orders: Sternal Precautions, ROM Exercises, Evaluation for Physical Therapy, Evaluation for Occupational Therapy - Treatments Skin tear care topically daily PRN per policy, May check for fecal impaction rectally daily PRN, Fleet enema rectally every other day PRN cleansing purposes - Diet Orders Cardiac CERTIFICATION: I certify that the transfer of the above named patient to an Extended Care Facility is necessary for the continuing treatment of the diagnosis listed. The above information is true and accurate reflection of patient's current condition. Confidential - Redisclosure prohibited without a patient's written consent.
== END 2016-11-11 13:47 | DRG 234 ==
LOC: INVDIALAB 06:28 → 2NNU 08:30 → ICNU 11-02 09:25 → 2NNU 11-06 11:07
PROVIDERS: ADMIT Emergency Medicine; ATTEND Thoracic Surgery (Cardiothoracic Vascular Surgery)

== ENCOUNTER 2017-10-24 20:29 | Observation (INO) ==
--- NOTE | 2017-10-24 21:28 | Emergency Department Note ---
Disposition Clinical Impression: Chest pain, rule out acute myocardial infarction Disposition: Admitted As Inpatient Condition: Fair Time of Disposition: 23:15 Chest Pain HPI - General Chief Complaint: ED Chest Pain Stated Complaint: CP Time Seen by Provider: 10/24/17 20:34 Source: patient Limitations: no limitations Vital Signs Reviewed: Yes Nursing Notes Reviewed: Yes - History of Present Illness HPI Narrative: Patient is a 77-year-old female who presents to [facility] ED with a chief complaint of chest pain. States her symptoms started yesterday evening while she was at rest. States it came on gradually as a dull ache and radiated into her shoulder blade. Denies any nausea, vomiting, fever or chills. Denies any shortness of breath or diaphoresis with this. States it came on for a few hours and then went away after 3 aspirin and 3 nitroglycerin. She stated it then came back again today and when again away with nitroglycerin. Past medical history significant for CAD status post bypass surgery last year. Patient currently follows with executive vice president business development Dr. Clay. Pt complaint: chest pain Onset (ago): day(s) (2) Duration: intermittent Onset: during rest Pain Location: left chest Severity: now resolved Severity scale (1-10): 0 Quality: aching Pain Radiation: back Improves with: nitroglycerin Worsens with: nothing Associated symptoms: Denies: nausea, vomiting, diaphoresis, dyspnea, syncope, fever, cough Treatments prior to arrival chest pain: aspirin, nitroglycerin - Related Data Home Medications Medication Instructions Recorded Confirmed Aspirin [Lo-Dose Aspirin EC] 81 mg PO DAILY 10/31/16 10/24/17 Atenolol [Tenormin] 12.5 mg PO HS 10/31/16 10/24/17 Calcium Carbonate [Calcium] 500 mg PO DAILY 10/31/16 10/24/17 Cholecalciferol (Vitamin D3) 2,000 unit PO DAILY 10/31/16 10/24/17 [Vitamin D3] Pravastatin Sodium [Pravachol] 40 mg PO DAILY 10/31/16 10/24/17 Magnesium 30 mg PO DAILY 10/24/17 10/24/17 clonazePAM [Klonopin] 0.25 mg PO DAILY PRN 10/24/17 10/24/17 Allergies Allergy/AdvReac Type Severity Reaction Status Date / Time No Known Allergies Allergy Verified 10/24/17 20:32 All systems ED: reviewed and negative except as stated. Chest Pain PMH - Past Medical History Medical history: Reports: coronary artery disease, hyperlipidemia, hypertension Psychiatric history: Reports: anxiety - Social History Smoking Status: Never smoker Alcohol use: Reports: none Drug use: Reports: none Physical Exam - General Limitations: no limitations General appearance: alert - Head Head exam: atraumatic, normocephalic, normal inspection - Eye Eye exam: Present: EOMI - ENT ENT exam: normal exam, normal oropharynx, mucous membranes moist - Neck Neck exam: Present: normal inspection, full ROM, trachea midline - Chest Chest inspection: Present: normal inspection, symmetric chest wall rise - Respiratory Respiratory exam: Present: normal lung sounds bilaterally - Cardiovascular Cardiovascular exam: Present: regular rate, normal rhythm, normal heart sounds - Abdominal Exam Abdominal exam: Present: soft, Non-Tender. Absent: tenderness, distention, guarding, rebound, rigidity - Extremities Exam Extremities exam: Present: normal inspection, full ROM. Absent: tenderness, pedal edema - Back Exam Back exam: Present: normal inspection, full ROM. Absent: tenderness - Neurological Exam Neurological exam: Present: alert, oriented X3 - Psychiatric Psychiatric exam: Present: normal affect, normal mood - Skin Skin exam: Present: warm, dry, intact, normal color Course Course Narrative: Patient seen and examined. Chest pain radiating into the back. Pain has been improved by nitroglycerin. With her history of recent CABG 1 year ago, her symptoms are concerning for possible ACS. Cardiopulmonary workup initiated. Patient is currently asymptomatic. We will likely admit for chest pain, ACS workup. Patient is currently hypertensive equally bilaterally in the upper extremities with equal pulses. I do not suspect aortic dissection at this time. - Reevaluation(s) Reevaluation #1: Patient has remained chest pain-free. Her lab work appears unremarkable. We will admit for chest pain, ACS workup. I discussed with the hospitalist Dr. Bishop who has accepted patient for admission. Time: 22:30 Vital Signs Temperature 97.7 F 10/24/17 20:30 Pulse Rate 75 10/24/17 20:30 Respiratory Rate 16 10/24/17 20:30 Blood Pressure 151/78 10/24/17 20:30 O2 Sat by Pulse Oximetry 97 10/24/17 20:30 Temperature 97.7 F 10/24/17 20:30 Pulse Rate 73 10/24/17 22:53 Respiratory Rate 16 10/24/17 22:53 Blood Pressure 171/84 10/24/17 22:53 O2 Sat by Pulse Oximetry 97 10/24/17 22:53 Oxygen Delivery Oxygen Delivery Room Air Chest Pain - Medical Records Medical records reviewed: Yes I reviewed the patient's medical records. - Lab Data Lab results reviewed: Yes I reviewed the patient's lab results. Result diagrams: 10/24/17 21:01 10/24/17 21:01 Lab Results 10/24/17 10/24/17 10/24/17 Range/Units 20:51 21:01 21:01 WBC 6.4 (4.3-11.1) K/mcL RBC 4.11 (3.82-4.97) M/mcL Hgb 13.4 (11.5-15.4) g/dL Hct 38.9 (35.3-44.9) % MCV 94.6 (83.0-100.0) fL MCH 32.6 (28.0-33.3) pg MCHC 34.4 (31.6-35.5) g/dL RDW 12.6 (11.5-14.5) % Plt Count 163 (140-400) K/mcL MPV 10.4 (9.4-12.4) fL Immature Gran % 0.2 (0-4) % Seg Neutrophils % 43.5 % Lymphocytes % 39.2 % Monocytes % 10.8 % Eosinophils % 5.8 % Basophils % 0.5 % Neutrophils # 2.8 (1.6-8.9) K/mcL Lymphocytes # 2.5 (0.6-4.6) K/mcL Monocytes # 0.7 (0.0-1.3) K/mcL Eosinophils # 0.4 (0.0-0.6) K/mcL Basophils # 0.0 (0.0-0.2) K/mcL PT 10.9 (9.4-12.1) Seconds INR 1.0 APTT 31.4 (26.0-36.0) Seconds Sodium 138 (136-145) mEq/L Potassium 4.3 (3.5-5.1) mEq/L Chloride 106 (98-107) mEq/L Carbon Dioxide 27 (23-29) mEq/L BUN 22 (8-23) mg/dL Creatinine 0.97 (0.60-1.20) mg/dL Est GFR ( Amer) > 60 (> 60) Est GFR (Non-Af Amer) 55 L (> 60) BUN/Creatinine Ratio 23 (6-26) Glucose 114 H (70-105) mg/dL Calculated Osmolality 290 (280-300) Calcium 9.5 (8.6-10.3) mg/dL Troponin I < 0.03 (< 0.04) ng/mL - Radiology Data Radiology results reviewed: Yes I reviewed the patient's radiology results. Chest X-Ray 10/24/17 20:51 IMPRESSION: No acute process. D/ / Chaka Small MD / Chaka Small MD Interpreting Provider: Chaka Small MD - EKG Data EKG attestation: Yes I reviewed and interpreted this EKG. EKG results narrative: EKG done at 2040 shows normal sinus rhythm with a rate of [address] elevation or depression. Normal axis. Heart Score - Score History: Moderately Suspicious EKG: Normal Age: Greater than 65 Risk Factors: Equal/Greater than 3 risk factor or history of atherosclerotic disease Troponin: Less than normal limit HEART Score Total: 5
[2017-10-24 21:29] LABS: Basophils % 0.5 %; Eosinophils # 0.4 K/mcL (0.0-0.6); Eosinophils % 5.8 %; Hematocrit 38.9 % (35.3-44.9); Hemoglobin 13.4 g/dL (11.5-15.4); Immature Granulocytes % 0.2 % (0-4); Lymphocytes # 2.5 K/mcL (0.6-4.6); Lymphocytes % 39.2 %; Mean Corpuscular HGB Conc 34.4 g/dL (31.6-35.5); Mean Corpuscular Hemoglobin 32.6 pg (28.0-33.3); Mean Corpuscular Volume 94.6 fL (83.0-100.0); Mean Platelet Volume 10.4 fL (9.4-12.4); Monocytes # 0.7 K/mcL (0.0-1.3); Monocytes % 10.8 %; Neutrophils # 2.8 K/mcL (1.6-8.9); Platelet Count 163 K/mcL (140-400); Red Blood Count 4.11 M/mcL (3.82-4.97); Red Cell Distribution Width 12.6 % (11.5-14.5); Segmented Neutrophils % 43.5 %
[2017-10-24 21:30] LABS: Prothrombin Time 10.9 Seconds (9.4-12.1)
[2017-10-24 21:32] LABS: Activated Partial Thrombo Time 31.4 Seconds (26.0-36.0)
[2017-10-24 21:46] LABS: BUN/Creatinine Ratio 23 (6-26); Blood Urea Nitrogen 22 mg/dL (8-23); Calcium 9.5 mg/dL (8.6-10.3); Carbon Dioxide 27 mEq/L (23-29); Chloride 106 mEq/L (98-107); Glucose 114 mg/dL (70-105); Osmolality,Calculated 290 (280-300); Potassium 4.3 mEq/L (3.5-5.1); Sodium 138 mEq/L (136-145); Troponin I < 0.03 ng/mL (< 0.04); eGFR For Non-African Americans 55 (> 60)
--- NOTE | 2017-10-24 22:51 | Emergency Department Note ---
Disposition Clinical Impression: Chest pain, rule out acute myocardial infarction Disposition: Home, Self-Care Condition: Fair Chest Pain HPI - General Chief Complaint: ED Chest Pain Stated Complaint: CP Time Seen by Provider: 10/24/17 20:34 Source: patient Limitations: no limitations Vital Signs Reviewed: Yes Nursing Notes Reviewed: Yes - History of Present Illness Pain Location: left chest Severity scale (1-10): 0 Quality: aching Improves with: nitroglycerin Worsens with: nothing Associated symptoms: Denies: nausea, vomiting, diaphoresis, dyspnea, syncope, fever, cough - Related Data Home Medications Medication Instructions Recorded Confirmed Aspirin [Lo-Dose Aspirin EC] 81 mg PO DAILY 10/31/16 10/24/17 Atenolol [Tenormin] 12.5 mg PO HS 10/31/16 10/24/17 Calcium Carbonate [Calcium] 500 mg PO DAILY 10/31/16 10/24/17 Cholecalciferol (Vitamin D3) 2,000 unit PO DAILY 10/31/16 10/24/17 [Vitamin D3] Pravastatin Sodium [Pravachol] 40 mg PO DAILY 10/31/16 10/24/17 Magnesium 30 mg PO DAILY 10/24/17 10/24/17 clonazePAM [Klonopin] 0.25 mg PO DAILY PRN 10/24/17 10/24/17 Allergies Allergy/AdvReac Type Severity Reaction Status Date / Time No Known Allergies Allergy Verified 10/24/17 20:32 Chest Pain PMH - Past Medical History Medical history: Reports: coronary artery disease, hyperlipidemia, hypertension Psychiatric history: Reports: anxiety - Social History Smoking Status: Never smoker Alcohol use: Reports: none Drug use: Reports: none Physical Exam - General Limitations: no limitations General appearance: alert Course Vital Signs Temperature 97.7 F 10/24/17 20:30 Pulse Rate 75 10/24/17 20:30 Respiratory Rate 16 10/24/17 20:30 Blood Pressure 151/78 10/24/17 20:30 O2 Sat by Pulse Oximetry 97 10/24/17 20:30 Temperature 97.7 F 10/24/17 20:30 Pulse Rate 75 10/24/17 20:30 Respiratory Rate 16 10/24/17 20:30 Blood Pressure 151/78 10/24/17 20:30 O2 Sat by Pulse Oximetry 97 10/24/17 20:30 Oxygen Delivery Oxygen Delivery Room Air Chest Pain - Lab Data Result diagrams: 10/24/17 21:01 10/24/17 21:01 Lab Results 10/24/17 10/24/17 10/24/17 Range/Units 20:51 21:01 21:01 WBC 6.4 (4.3-11.1) K/mcL RBC 4.11 (3.82-4.97) M/mcL Hgb 13.4 (11.5-15.4) g/dL Hct 38.9 (35.3-44.9) % MCV 94.6 (83.0-100.0) fL MCH 32.6 (28.0-33.3) pg MCHC 34.4 (31.6-35.5) g/dL RDW 12.6 (11.5-14.5) % Plt Count 163 (140-400) K/mcL MPV 10.4 (9.4-12.4) fL Immature Gran % 0.2 (0-4) % Seg Neutrophils % 43.5 % Lymphocytes % 39.2 % Monocytes % 10.8 % Eosinophils % 5.8 % Basophils % 0.5 % Neutrophils # 2.8 (1.6-8.9) K/mcL Lymphocytes # 2.5 (0.6-4.6) K/mcL Monocytes # 0.7 (0.0-1.3) K/mcL Eosinophils # 0.4 (0.0-0.6) K/mcL Basophils # 0.0 (0.0-0.2) K/mcL PT 10.9 (9.4-12.1) Seconds INR 1.0 APTT 31.4 (26.0-36.0) Seconds Sodium 138 (136-145) mEq/L Potassium 4.3 (3.5-5.1) mEq/L Chloride 106 (98-107) mEq/L Carbon Dioxide 27 (23-29) mEq/L BUN 22 (8-23) mg/dL Creatinine 0.97 (0.60-1.20) mg/dL Est GFR ( Amer) > 60 (> 60) Est GFR (Non-Af Amer) 55 L (> 60) BUN/Creatinine Ratio 23 (6-26) Glucose 114 H (70-105) mg/dL Calculated Osmolality 290 (280-300) Calcium 9.5 (8.6-10.3) mg/dL Troponin I < 0.03 (< 0.04) ng/mL Attestation Statement - Attestation Attestation: I, Isaiah Curtis, examined this patient and my medical decision-making was reviewed with the ASSEMBLIES AND INSTALLATIONS INSPECTOR/PA/Advanced Practice Nurse/Resident Physician. I agree with the documented findings, disposition and treatment plan as described except to the extent set forth below. 77-year-old female presents emergency Department with concerns of chest pain. Patient states symptoms started last night, improved after aspirin and nitroglycerin. They returned again today while she was at rest. She states the symptoms feel similar to the previous [place]. Patient had recent three-vessel bypass performed with Dr. Clay within the past year. Patient denies fever, chills, vomiting, diarrhea. Initial EKG did not show evidence of STEMI. Chest x-ray did not show evidence of acute infiltrate or thorax. Initial troponin was negative. Patient felt comfortable with the plan for admission to the hospital for further care and evaluation of her acute chest pain to rule out ACS.
[2017-10-25] MEDS ORDERED: Naloxone 0.4 MG/ML INJ IVP PRN (00:38)
[2017-10-25] MEDS ORDERED: clonazePAM 0.5 MG TABLET PO PRN (00:41)
[2017-10-25 04:15] LABS: Hematocrit 39.3 % (35.3-44.9); Hemoglobin 13.4 g/dL (11.5-15.4); Mean Corpuscular HGB Conc 34.1 g/dL (31.6-35.5); Mean Corpuscular Hemoglobin 32.4 pg (28.0-33.3); Mean Corpuscular Volume 95.2 fL (83.0-100.0); Mean Platelet Volume 10.5 fL (9.4-12.4); Platelet Count 166 K/mcL (140-400); Red Blood Count 4.13 M/mcL (3.82-4.97); Red Cell Distribution Width 12.5 % (11.5-14.5)
[2017-10-25 04:37] LABS: BUN/Creatinine Ratio 23 (6-26); Blood Urea Nitrogen 18 mg/dL (8-23); Calcium 9.4 mg/dL (8.6-10.3); Carbon Dioxide 28 mEq/L (23-29); Chloride 107 mEq/L (98-107); Glucose 86 mg/dL (70-105); Osmolality,Calculated 291 (280-300); Potassium 3.9 mEq/L (3.5-5.1); Sodium 140 mEq/L (136-145); eGFR For Non-African Americans > 60 (> 60)
[2017-10-25] MEDS ORDERED: *HR* Heparin 5,000 UNIT/ML VIAL SQ SCH (06:00)
--- NOTE | 2017-10-25 07:52 | Internal Med History&Physical ---
Date of Encounter: 10/25/17 Time of Encounter: 00:20 Internal Medicine - H&P: HPI Chief complaint: Chest pain Admitted From: Home Plans for Post Hospital Care: Home History of present illness: Ms. Lundy is a 77 year old female Chest julissa started yesterday evening while patient was at rest. Dull in nature , progressed to pressure with radiatoin to left posterior shoulder. Took 3 nitros at the time with 3 aspirins, and pain resolved. Pain returned the morning of admission while she was out with her daughter. Once again to nitro and aspirin and pain resolved. Later that evening the pain returned again, and resolved with nitro and aspirin. at this point she decided to come to the ER for further evaluation. Patient has a history of CAD with CABG 1 year ago. ER workup showed troponins of <0.03, and no acute changes on chest x-ray. EKG was NSR with no ST changes. Due to her concerning history of CAD and suspicious presentation she was admitted for further monitoring. Past Med Surg Social Fam HX - Past Medical History Medical history: coronary artery disease, hyperlipidemia, hypertension Additional medical history: TEMPORAL ATERITIS. ABNORMAL STRESS TEST Psychiatric history: anxiety - Past Surgical History Additional surgical history: OVARIES REMOVED. CABG - Social History Smoking Status: Never smoker Smokeless Tobacco Status: No Alcohol use: none Drug use: none - Family History Mother Hx Family Cardiac Disorders: Yes Father Hx Family Cardiac Disorders: Yes Internal Medicine - H&P: Meds Aspirin [Lo-Dose Aspirin EC] 81 mg PO DAILY 10/31/16 [History] Atenolol [Tenormin] 12.5 mg PO HS 10/31/16 [History] Calcium Carbonate [Calcium] 500 mg PO DAILY 10/31/16 [History] Cholecalciferol (Vitamin D3) [Vitamin D3] 2,000 unit PO DAILY 10/31/16 [History] Pravastatin Sodium [Pravachol] 40 mg PO DAILY 10/31/16 [History] Magnesium 30 mg PO DAILY 10/24/17 [History] clonazePAM [Klonopin] 0.25 mg PO DAILY PRN 10/24/17 [History] 3 Allergy/AdvReac Type Severity Reaction Status Date / Time No Known Allergies Allergy Verified 10/24/17 20:32 All Systems PM: A 10-system review of systems was performed and is negative for pertinent findings except as documented above in the HPI. - Constitutional Vitals: Temp Pulse Resp BP Pulse Ox 97.7 F 65 16 125/80 93 10/25/17 07:09 10/25/17 07:09 10/25/17 07:09 10/25/17 07:09 10/25/17 07:09 General appearance: Present: cooperative, A&O X 3, pleasant, no acute distress, answers questions appropriately - Head Head exam: Present: normal inspection - Eye Eye exam: Present: EOMI - Respiratory Respiratory exam: Present: CTAB. Absent: chest wall tenderness, decreased breath sounds, respiratory distress, wheezes - Cardiovascular Cardiovascular exam: Present: RRR. Absent: diastolic murmur, systolic murmur - GI/Abdominal GI/Abdominal exam: Present: normal bowel sounds, soft. Absent: tenderness - Extremities Exam Extremities exam: Present: warm, radial pulses palpable and symmetrical. Absent : calf tenderness, pedal edema, tenderness - Neurological Exam Neurological exam: Present: strengths equal and symetr throughout. Absent: motor sensory deficit, no focal deficits, facial droop, speech deficit - Skin Skin exam: Present: normal color, warm Internal Med - H&P Results - Labs CBC & Chem 7: 10/25/17 03:10 10/25/17 03:10 Labs: Short CBC 10/25/17 Range/Units 03:10 WBC 6.1 (4.3-11.1) K/mcL Hgb 13.4 (11.5-15.4) g/dL Hct 39.3 (35.3-44.9) % Plt Count 166 (140-400) K/mcL BMP 10/25/17 03:10 Sodium 140 Potassium 3.9 Chloride 107 Carbon Dioxide 28 BUN 18 Creatinine 0.79 Glucose 86 Calcium 9.4 Cardiac Enzymes 10/25/17 Range/Units 03:10 Troponin I < 0.03 (< 0.04) ng/mL - Assessment and plan (1) Chest pain, rule out acute myocardial infarction Current Visit: Yes Status: Acute Assessment and plan: Troponins negative thus far. Chest pain resolved. Continue to trend troponins, Cardiac monitoring Consider repeat stress test/echo, last stress test was about 1 year ago. Consider cardiology consult. (2) HTN (hypertension) Current Visit: Yes Status: Acute Assessment and plan: Elevated in ER. Patient takes medication for this at home. Continue to monitor Continue home meds. Qualifiers: Qualified Code(s): I10 - Essential (primary) hypertension (3) Coronary artery disease Current Visit: No Status: Acute Assessment and plan: History of CABG 1 year ago. Continue to monitor. Qualifiers: Coronary Disease-Associated Artery/Lesion type: [place] artery [place] vs. transplanted heart: [place] heart Associated angina: with stable angina Qualified Code(s): I25.118 - Atherosclerotic heart disease of [place] coronary artery with other forms of angina pectoris - Time Spent With Patient Total time spent is greater than 50% in coordination of care (as documented) at patient's floor/unit and/or counseling patient: Greater than 35 minutes
[2017-10-25] MEDS ORDERED: Aspirin Enteric Coated 81 MG Tablet PO SCH (09:00)
[2017-10-25] MEDS ORDERED: Regadenoson 0.4 MG/5 ML SYRINGE IVP ONE (11:34)
--- NOTE | 2017-10-25 13:50 | Discharge Summary ---
- NOTES TO OUTPATIENT PROVIDER Notes to Outpatient Provider: Patient needs a close follow-up with cardiology upon outpatient discharge. Orders not resulted at time of discharge: Pending orders 10/25/17 10:57 NM so perf SPECT multi [NM] Routine Date of Encounter: 10/25/17 Time of Encounter: 13:47 - Discharge Diagnosis (1) Chest pain, rule out acute myocardial infarction Priority: Primary Status: Acute (2) HTN (hypertension) Priority: Secondary Status: Acute Qualifiers: Hypertension type: essential hypertension Qualified Code(s): I10 - Essential (primary) hypertension Hospital course: Ms. 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 She had 3 sets of troponins negative and underwent a stress test which was negative. Her case was discussed with ralph cardiology consult with Drs. Xie who agreed with discharge and follow-up as an outpatient with cardiology Discharge discussed with: patient - Time Spent with Patient Total time spent providing and/or coordinating discharge services: Greater than 30 minutes - Discharge Medications Home Medications: Aspirin [Lo-Dose Aspirin EC] 81 mg PO DAILY 10/31/16 [History] Atenolol [Tenormin] 12.5 mg PO HS 10/31/16 [History] Calcium Carbonate [Calcium] 500 mg PO DAILY 10/31/16 [History] Cholecalciferol (Vitamin D3) [Vitamin D3] 2,000 unit PO DAILY 10/31/16 [History] Pravastatin Sodium [Pravachol] 40 mg PO DAILY 10/31/16 [History] Magnesium 30 mg PO DAILY 10/24/17 [History] clonazePAM [Klonopin] 0.25 mg PO DAILY PRN 10/24/17 [History] Allergies/Adverse Reactions: 3 Allergy/AdvReac Type Severity Reaction Status Date / Time No Known Allergies Allergy Verified 10/24/17 20:32 Date of admission: 10/24/17 22:38 Primary care physician: Antonieta Daly CNP - Constitutional Vitals: Temp Pulse Resp BP Pulse Ox 97.7 F 65 16 125/80 93 10/25/17 07:09 10/25/17 07:09 10/25/17 07:09 10/25/17 07:09 10/25/17 07:09 General appearance: Present: cooperative, A&O X 3, pleasant, no acute distress, answers questions appropriately Exam: GENERAL: Alert, no distress, cooperative EYES: PERRLA, EOMI EARS: External ears normal, canals clear OROPHARYNX: Lips, mucosa, and tongue normal. Teeth and gums normal. Oropharynx normal. NECK: No jugulovenous distention, No carotid bruits, Carotid pulse normal contour, Supple LUNGS: Lungs clear to auscultation, Good diaphragmatic excursion CARDIAC: Normal S1 and S2; no rubs, murmurs, or gallops ABDOMEN: Abdomen soft, non-tender, BS normal, No masses or organomegaly EXTREMITIES: Extremities normal, no deformities, edema, clubbing or skin discoloration. Good capillary refill., No ulcers NEURO: Gait normal. Reflexes normal and symmetric. Sensation grossly intact, Cranial nerves II-XII intact PULSES: 2+ radial, 2+ carotid Rest of the exam is non contributory - Patient Status Disposition: Home, Self-Care Condition: Fair Functional capacity at discharge: independent ambulation Overall status at discharge: patient is back to baseline - Discharge Instructions Instructions: Chest Pain (DC) Follow Up With: Darion Awad MD [Partnered Physician] - 10/31/17 2:00 pm Daly,Antonieta Arteaga CNP [Primary Care Provider] - 11/06/17 9:00 am Forms: ED Satisfaction Letter - Diet and Activity Activity: increase activity as tolerated Diet: advance to your usual diet
[2017-10-25] MEDS ORDERED: Acetaminophen 325 MG TABLET PO PRN (14:45)
[2017-10-25 15:30] VITALS: BP 143/70
--- NOTE | 2017-10-25 17:08 | Electrocardiograph Report ---
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
== END 2017-10-25 16:39 | disposition home or self-care (01) ==
LOC: EMEROO 20:29 → 3BNU 20:29
PROVIDERS: ADMIT Internal Medicine; ATTEND Internal Medicine

== ENCOUNTER 2020-01-06 11:10 | Observation (INO) ==
[2020-01-06 11:50] LABS: Basophils % 0.2 %; Hematocrit 41.3 % (35.3-44.9); Hemoglobin 13.4 g/dL (11.5-15.4); Immature Granulocytes % 0.2 % (0-4); Lymphocytes # 1.2 K/mcL (0.6-4.6); Lymphocytes % 26.2 %; Mean Corpuscular HGB Conc 32.4 g/dL (31.6-35.5); Mean Corpuscular Hemoglobin 31.4 pg (28.0-33.3); Mean Corpuscular Volume 96.7 fL (83.0-100.0); Mean Platelet Volume 9.9 fL (9.4-12.4); Monocytes # 0.6 K/mcL (0.0-1.3); Monocytes % 12.7 %; Neutrophils # 2.7 K/mcL (1.6-8.9); Platelet Count 144 K/mcL (140-400); Red Blood Count 4.27 M/mcL (3.82-4.97); Red Cell Distribution Width 12.4 % (11.5-14.5); Segmented Neutrophils % 60.7 %; White Blood Count 4.4 K/mcL (4.3-11.1)
[2020-01-06 11:54] LABS: Prothrombin Time 11.7 Seconds (9.4-12.1)
[2020-01-06 11:56] LABS: Activated Partial Thrombo Time 28.4 Seconds (26.0-36.0)
[2020-01-06 12:02] LABS: Bilirubin,Urine Negative (Negative); Blood,Urine Trace (Negative); Clarity,Urine Clear (Clear); Color,Urine Yellow (Yellow); Glucose,Urine (UA) Normal (Normal); Ketones,Urine Trace mg/dL (Negative); Leukocyte Esterase,Urine Negative (Negative); Nitrite,Urine Negative (Negative); PH,Urine 6.5 pH Units (5.0-8.0); Protein,Urine 50 mg/dL (Neg-Trace); Specific Gravity,Urine 1.019 (1.010-1.025); Urobilinogen,Urine Normal (Normal)
[2020-01-06 12:12] LABS: Squamous Epithelial Cell,Urine Few per hpf (None-Few)
[2020-01-06 12:13] LABS: WBC,Urine 0-3 per hpf (0-3)
[2020-01-06 12:31] LABS: Alanine Aminotransferase 29 Units/L (7-52); Albumin/Globulin Ratio 1.2 (1.1-2.2); Alkaline Phosphatase 53 Units/L (34-104); Aspartate Amino Transferase 46 Units/L (13-39); BUN/Creatinine Ratio 15 (6-26); Bilirubin,Indirect 0.5 mg/dL (0.0-1.0); Bilirubin,Total 0.5 mg/dL (0.3-1.0); Blood Urea Nitrogen 16 mg/dL (8-23); C-Reactive Protein 14 mg/L (Less than 10); Calcium 9.1 mg/dL (8.6-10.3); Carbon Dioxide 20 mEq/L (23-29); Chloride 101 mEq/L (98-107); Ferritin 608 ng/mL (10-120); Globulin 3.4 g/dL (2.4-3.5); Glucose 131 mg/dL (70-105); Lactate Dehydrogenase 209 Units/L (140-271); Magnesium 1.5 mg/dL (1.6-2.6); Osmolality,Calculated 285 (280-300); Phosphorous 2.2 mg/dL (2.7-4.5); Potassium 3.3 mEq/L (3.5-5.1); Sodium 136 mEq/L (136-145); Total Protein 7.4 g/dL (6.4-8.9); Troponin I < 0.03 ng/mL (< 0.04); eGFR For African Americans > 60 (> 60); eGFR For Non-African Americans 50 (> 60)
[2020-01-06] MEDS ORDERED: Ondansetron 4 MG/2 ML VIAL IVP ONE (12:53)
[2020-01-06] MEDS ORDERED: 0.9 % Sodium Chloride 1,000 ML IVC ONE (12:53)
[2020-01-06] MEDS ORDERED: Naloxone 0.4 MG/ML INJ IVP PRN (13:20)
[2020-01-06] MEDS ORDERED: 0.9 % Sodium Chloride 1,000 ML IVC SCH (13:30)
[2020-01-06] MEDS: Acetaminophen 325 MG TABLET PO PRN (20:32)
[2020-01-06] MEDS: Ondansetron 4 MG/2 ML VIAL IVP PRN (22:50)
[2020-01-07] MEDS: *HR* Enoxaparin 40 MG/0.4 ML SYRINGE SQ SCH (05:01)
[2020-01-07 06:59] LABS: Basophils % 0.3 %; Hematocrit 36.4 % (35.3-44.9); Immature Granulocytes % 0.3 % (0-4); Lymphocytes # 1.3 K/mcL (0.6-4.6); Lymphocytes % 39.7 %; Mean Corpuscular Hemoglobin 32.3 pg (28.0-33.3); Mean Corpuscular Volume 97.8 fL (83.0-100.0); Mean Platelet Volume 9.6 fL (9.4-12.4); Monocytes # 0.5 K/mcL (0.0-1.3); Monocytes % 14.9 %; Neutrophils # 1.4 K/mcL (1.6-8.9); Platelet Count 125 K/mcL (140-400); Red Blood Count 3.72 M/mcL (3.82-4.97); Red Cell Distribution Width 12.5 % (11.5-14.5); Segmented Neutrophils % 44.8 %; White Blood Count 3.2 K/mcL (4.3-11.1)
[2020-01-07 07:17] LABS: BUN/Creatinine Ratio 15 (6-26); Blood Urea Nitrogen 13 mg/dL (8-23); Calcium 8.1 mg/dL (8.6-10.3); Carbon Dioxide 23 mEq/L (23-29); Chloride 108 mEq/L (98-107); Glucose 100 mg/dL (70-105); Magnesium 2.2 mg/dL (1.6-2.6); Osmolality,Calculated 286 (280-300); Potassium 3.4 mEq/L (3.5-5.1); Sodium 138 mEq/L (136-145); eGFR For African Americans > 60 (> 60); eGFR For Non-African Americans > 60 (> 60)
[2020-01-07] MEDS ORDERED: Potassium Chloride Elixir 20 MEQ/15 ML UDC PO ONE (07:44)
[2020-01-07] MEDS ORDERED: clonazePAM 0.5 MG TABLET PO PRN (07:45)
[2020-01-07] MEDS: Aspirin Enteric Coated 81 MG Tablet PO SCH (08:04)
[2020-01-07] MEDS: Cholecalciferol (D-3) 1,000 UNIT (25MCG) TABLET PO SCH (08:04)
[2020-01-07] MEDS ORDERED: NON-FORMULARY MEDICATION 1 EACH EACH (Magnesium 30 MG) PO SCH (09:00)
[2020-01-07] MEDS: Ondansetron 4 MG/2 ML VIAL IVP PRN (17:09)
[2020-01-07] MEDS: Acetaminophen 325 MG TABLET PO PRN (20:16)
[2020-01-07] MEDS ORDERED: atenoloL 25 MG TABLET PO SCH (21:00)
[2020-01-08 04:52] LABS: Hematocrit 36.6 % (35.3-44.9); Mean Corpuscular HGB Conc 32.8 g/dL (31.6-35.5); Mean Corpuscular Hemoglobin 31.7 pg (28.0-33.3); Mean Corpuscular Volume 96.6 fL (83.0-100.0); Mean Platelet Volume 9.8 fL (9.4-12.4); Platelet Count 151 K/mcL (140-400); Red Blood Count 3.79 M/mcL (3.82-4.97); Red Cell Distribution Width 12.6 % (11.5-14.5); White Blood Count 4.4 K/mcL (4.3-11.1)
[2020-01-08 05:06] LABS: BUN/Creatinine Ratio 14 (6-26); Blood Urea Nitrogen 13 mg/dL (8-23); Calcium 8.4 mg/dL (8.6-10.3); Carbon Dioxide 23 mEq/L (23-29); Chloride 107 mEq/L (98-107); Glucose 102 mg/dL (70-105); Osmolality,Calculated 284 (280-300); Sodium 137 mEq/L (136-145); eGFR For African Americans > 60 (> 60); eGFR For Non-African Americans 57 (> 60)
[2020-01-08] MEDS: *HR* Enoxaparin 40 MG/0.4 ML SYRINGE SQ SCH (06:16)
[2020-01-08] MEDS: Aspirin Enteric Coated 81 MG Tablet PO SCH (08:16)
[2020-01-08] MEDS: Cholecalciferol (D-3) 1,000 UNIT (25MCG) TABLET PO SCH (08:16)
[2020-01-08 12:54] VITALS: BP 131/65
== END 2020-01-08 12:59 | disposition home or self-care (01) ==
LOC: SUATTDRO → EMEROOARM 11:10 → 2NENU 11:10 → SUATTDRO 15:13 → 2NENU 16:45
PROVIDERS: ADMIT Internal Medicine; ATTEND Internal Medicine